=== PATIENT | male | born 1970 | race Caucasian/White ===

== ENCOUNTER 2017-05-03 20:18 | Inpatient (IN) | payer OTHER ==
[2017-05-03 20:51] VITALS: BMI 29.4
--- NOTE | 2017-05-03 21:57 | HP ---
COWS - Scale Resting Pulse: 0= ID 80 or Below Sweatin=Flushed/Facial Moisture Restless Observation: 1= Difficult to Sit Still Pupil Size: 0= Normal to Room Light Bone or Joint Aches: 1= Mild Discomfort Runny Nose/ Eye Tearin= Runny Nose/Eyes GI Upset > 30mins: 2= Nausea/Diarrhea Tremor Observation: 1= Tremor [place], Not Seen Yawning Observation: 1= 1-2x During Session Anxiety or Irritability: 2=Irritable/Anxious Goose Flesh Skin: 0=Smooth Skin COWS Score: 12 CIWA Score - CIWA Score Nausea/Vomitin-Mild Nausea/No Vomiting Muscle Tremors: 2 Anxiety: 3 Agitation: 0-Normal Activity Paroxysmal Sweats: 2 Orientation: 0-Oriented Tacttile Disturbances: 1-Very Mild Itch/Numbness Auditory Disturbances: 1-Very Mild Visual Disturbances: 1-Very Mild Sensitivity Headache: 1-Very Mild CIWA-Ar Total Score: 12 Admission ROS BHS - HPI Chief Complaint: alcohol and heroin withdrawal symptoms History of Present Illness: 46 yo male with heroin, alcohol dependence, and occasional cocaine use is here seeking detox. Reports feeling depress because his nephew two weeks ago from Fentanyl overdose. PMHX: depression, anxiety, insomnia, left hip replacement in December. Reports prior to the surgery he was clean and relapse after he was treated with oxy for pain. Reports overdose 3 years ago, denies seizures or blackouts. Longest period of sobriety 8 month. Denies suicidal / homicidal ideation or suicide attempts. Upon completion of detox, patient plans to attend and out patient rehab. Last detox [facility] in [place] Mar 2017. Exam Limitations: No Limitations - Ebola screening Have you traveled outside of the country in the last 21 days: No (N) Have you had contact with anyone from an Ebola affected area: No Have you been sick,other than usual withdrawal symptoms: No Do you have a fever: No - Review of Systems Constitutional: Chills, Changes in sleep EENT: reports: Nose Congestion Respiratory: reports: No Symptoms reported Cardiac: reports: No Symptoms Reported GI: reports: Constipated, Nausea, Poor Appetite, Poor Fluid Intake, Indigestion : reports: No Symptoms Reported Musculoskeletal: reports: No Symptoms Reported Integumentary: reports: No Symptoms Reported Neuro: reports: No Symptoms reported Endocrine: reports: Excessive Sweating Hematology: reports: No Symptoms Reported Psychiatric: reports: Orientated x3, Anxious Other Systems: Reviewed and Negative Patient History - Patient Medical History Hx Anemia: No Hx Asthma: No Hx Chronic Obstructive Pulmonary Disease (COPD): No Hx Cancer: No Hx Cardiac Disorders: No Hx Congestive Heart Failure: No Hx Hypertension: No Hx Hypercholesterolemia: No Hx Pacemaker: No HX Cerebrovascular Accident: No Hx Seizures: No Hx Dementia: No Hx Diabetes: No Hx Gastrointestinal Disorders: No Hx Liver Disease: No Hx Genitourinary Disorders: No Hx Sexually Transmitted Disorders: No Hx Renal Disease (ESRD): No Hx Thyroid Disease: No Hx Human Immunodeficiency Virus (HIV): No (negative, lasted December 2016) Hx Hepatitis C: No Hx Depression: Yes Hx Suicide Attempt: No Hx Bipolar Disorder: No Hx Schizophrenia: No - Patient Surgical History Past Surgical History: Yes Hx Neurologic Surgery: No Hx Cataract Extraction: No Hx Cardiac Surgery: No Hx Lung Surgery: No Hx Breast Surgery: No Hx Breast Biopsy: No Hx Abdominal Surgery: No Hx Appendectomy: No Hx Cholecystectomy: No Hx Genitourinary Surgery: No Hx Orthopedic Surgery: Yes (left hip replacement ) Anesthesia Reaction: No - PPD History Previous Implant?: Yes Documented Results: Negative w/o proof PPD to be Administered?: Yes - Reproductive History Patient is a Female of Child Bearing Age (11 -55 yrs old): No - Smoking Cessation Smoking history: Former smoker Have you smoked in the past 12 months: Yes Hx Chewing Tobacco Use: No Initiated information on smoking cessation: No - Substance & Tx. History Hx Alcohol Use: Yes Hx Substance Use: Yes Substance Use Type: Alcohol Hx Substance Use Treatment: Yes ([facility] in [place] Mar 2017) - Substances Abused Alcohol Route: Oral Frequency: Daily Amount used: 1 litter wisky Age of first use: 16 Date of Last Use: 05/03/17 Heroin Route: Inhalation Frequency: Daily Amount used: 8 bags Age of first use: 43 Date of Last Use: 05/03/17 Cocaine Route: Inhalation Frequency: 1-2 times per week Amount used: $20 Age of first use: 43 Date of Last Use: 05/01/17 Family Disease History - Family Disease History Family Disease History: Other: Father (alive and well ), Mother (alive and well) , Brother (alive, cocaine and alcohol dependence ) Admission Physical Exam BHS - Vital Signs Vital Signs: Vital Signs - 24 hr 05/03/17 20:49 Temperature 95.8 F L Pulse Rate 75 Respiratory 18 Rate Blood Pressure 127/98 - Physical General Appearance: Yes: No Apparent Distress, Appropriately Dressed, Sweating, Anxious Respiratory: Yes: Chest Non-Tender, Lungs Clear, Normal Breath Sounds, No Respiratory Distress, No Accessory Muscle Use Neck: Yes: No masses,lesions,Nodules, Trachea in good position Breast: Yes: Breast Exam Deferred Cardiology: Yes: Regular Rhythm, Regular Rate Abdominal: Yes: Normal Bowel Sounds, Non Tender, Flat, Soft Genitourinary: Yes: Within Normal Limits Back: Yes: Normal Inspection Musculoskeletal: Yes: full range of Motion, Gait Steady, Pelvis Stable Extremities: Yes: Normal Capillary Refill, Normal Inspection, Normal Range of Motion, Non-Tender Neurological: Yes: affirmative action officer II-XII NML intact, Fully Oriented, Alert, Motor Strength 5/5, Depressed Affect Integumentary: Yes: Normal Color, Warm, Diaphoresis Lymphatic: Yes: Within Normal Limits - Diagnostic (1) Cocaine dependence Current Visit: Yes Status: Acute Qualifiers: Substance use status: uncomplicated Qualified Code(s): F14.20 - Cocaine dependence, uncomplicated (2) Alcohol dependence with withdrawal Current Visit: Yes Status: Acute Qualifiers: Complication of substance-induced condition: uncomplicated Qualified Code(s ): F10.230 - Alcohol dependence with withdrawal, uncomplicated (3) History of hip replacement Current Visit: Yes Status: Acute Qualifiers: Laterality: left Qualified Code(s): Z96.642 - Presence of left artificial hip joint (4) Opioid dependence with withdrawal Current Visit: Yes Status: Acute (5) Anxious mood Current Visit: Yes Status: Acute (6) Bereavement Current Visit: Yes Status: Acute (7) Difficulty sleeping Current Visit: Yes Status: Acute Cleared for Admission [facility] - Detox or Rehab [facility] Level of Care: Medically Managed Detox Regimen/Protocol: Methadone/Librium [facility] Breath Alcohol Content Breath Alcohol Content: 0 Urine Drug Screen - Results Drug Screen Negative: No Urine Drug Screen Results: RICHA-Cocaine, OPI-Opiates
[2017-05-03] MEDS ORDERED: LOPERAMIDE HCL 2 MG CAPSULE PO PRN (22:31)
[2017-05-03] MEDS ORDERED: METHADONE HCL 10 MG TABLET (FOR DETOX USE ONLY) PO ONE ×2 (22:31→23:00)
[2017-05-03] MEDS ORDERED: MAGNESIUM CITRATE 300 ML BOTTLE PO PRN (22:31)
[2017-05-03] MEDS ORDERED: MAGNESIUM HYDROX 2400MG/30ML ORAL SUSPENSION 30 ML CUP PO PRN (22:31)
[2017-05-03] MEDS ORDERED: chlordiazePOXIDE HCL 25 MG CAPSULE PO PRN (22:31)
[2017-05-03] MEDS ORDERED: MENTHOL/PHENOL 1 EACH UD MM PRN (22:31)
[2017-05-03] MEDS ORDERED: chlordiazePOXIDE HCL 25 MG CAPSULE PO ONE (22:31)
[2017-05-03] MEDS ORDERED: P-EPHED 60MG/TRIPROLIDI 2.5MG TABLET PO PRN (22:31)
[2017-05-03] MEDS ORDERED: guaiFENesin/D-METHORPHAN HB 10 ML UNIT-DOSE CUPS PO PRN (22:31)
[2017-05-03] MEDS ORDERED: chlordiazePOXIDE HCL 25 MG CAPSULE PO SCH (23:00)
[2017-05-04] MEDS: MELATONIN 5 MG TABLETS PO PRN (00:57)
[2017-05-04] MEDS ORDERED: METHADONE HCL 10 MG TABLET (FOR DETOX USE ONLY) PO ONE ×3 (01:19→22:00)
[2017-05-04] MEDS ORDERED: chlordiazePOXIDE HCL 25 MG CAPSULE PO PRN (01:19)
[2017-05-04 02:05] LABS: URINE APPEARANCE CLEAR; URINE BILIRUBIN NEGATIVE (<2.0 mg/dL); URINE BLOOD NEGATIVE (NEGATIVE); URINE COLOR YELLOW; URINE GLUCOSE (UA) NEGATIVE (NEGATIVE); URINE KETONE NEGATIVE (NEGATIVE); URINE LEUK ESTERASE NEGATIVE (NEGATIVE); URINE NITRITE NEGATIVE (NEGATIVE); URINE PROTEIN NEGATIVE (NEGATIVE); URINE UROBILINOGEN NEGATIVE mg/dL (0.2-1.0)
[2017-05-04] MEDS: chlordiazePOXIDE HCL 25 MG CAPSULE PO SCH ×4 (05:10→22:23)
[2017-05-04] MEDS: IBUPROFEN 400 MG TABLET (FP) PO PRN (09:45)
[2017-05-04] MEDS ORDERED: METHADONE HCL 10 MG TABLET (FOR DETOX USE ONLY) PO SCH (10:00)
[2017-05-04] MEDS: PANTOPRAZOLE 20 MG TABLET (FP) PO SCH ×2 (10:11→22:23)
[2017-05-04] MEDS: PRENATAL VITAMINS W/ FOLIC ACID TABLET (FP) PO SCH (10:11)
[2017-05-04 10:19] LABS: HEMATOCRIT 37.3 % (35.4-49); HEMOGLOBIN 12.8 GM/dL (11.7-16.9); MCH 30.6 pg (25.7-33.7); MCHC 34.3 g/dl (32.0-35.9); MEAN CELL VOLUME 89.1 fl (80-96); MEAN PLT VOLUME 8.2 fl (7.5-11.1); PLATELET COUNT 267 K/MM3 (134-434); RBC 4.19 M/mm3 (4.00-5.60); RDW 13.5 % (11.9-15.9); WHITE BLOOD COUNT 3.1 K/mm3 (4.0-10.0)
[2017-05-04 10:53] LABS: ALBUMIN 3.4 g/dl (3.4-5.0); ANION GAP 6 (8-16); BLOOD UREA NITROGEN 10 mg/dL (7-18); CALCIUM 8.5 mg/dL (8.5-10.1); CHLORIDE 101 mmol/L (98-107); CO2 31 mmol/L (21-32); GLUCOSE,RANDOM 82 mg/dL (74-106); POTASSIUM 4.3 mmol/L (3.5-5.1); SODIUM 138 mmol/L (136-145)
--- NOTE | 2017-05-04 10:53 | EKG ---
Test Reason : Blood Pressure : / mmHG Vent. Rate : 059 BPM Atrial Rate : 059 BPM P-R Int : 158 ms QRS Dur : 092 ms QT Int : 404 ms P-R-T Axes : 020 051 037 degrees QTc Int : 399 ms SINUS BRADYCARDIA WITH SINUS ARRHYTHMIA OTHERWISE NORMAL ECG NO PREVIOUS ECGS AVAILABLE Confirmed by JAME CONTRERAS, SANJEEV ([id number]) on 05/04/2017 10:52:47 AM Referred By: Confirmed By:SANJEEV KILGORE MD
[2017-05-04 10:56] LABS: ALK PHOS 77 U/L (45-117); BILIRUBIN,TOTAL 0.3 mg/dL (0.2-1.0); CREATININE 0.8 mg/dL (0.7-1.3); SGOT/AST 22 U/L (15-37); SGPT/ALT 37 U/L (12-78); TOT PROT 6.5 g/dl (6.4-8.2)
--- NOTE | 2017-05-04 11:50 | PN ---
S CIWA - CIWA Score Nausea/Vomitin-No Nausea/No Vomiting Muscle Tremors: None Anxiety: 4-Mod. Anxious/Guarded Agitation: 2 Paroxysmal Sweats: No Perspiration Orientation: 0-Oriented Tacttile Disturbances: 2-Mild Itch/Numbness/Burn Auditory Disturbances: 3-Moderate Harsh/Frighten Visual Disturbances: 3-Moderate Sensitivity Headache: 0-None Present CIWA-Ar Total Score: 14 BHS COWS - Scale Resting Pulse: 0= [place] 80 or Below Sweatin= Chills/Flushing Restless Observation: 1= Difficult to Sit Still Pupil Size: 0= Normal to Room Light Bone or Joint Aches: 2= Severe Diffuse Aches Runny Nose/ Eye Tearin= Runny Nose/Eyes GI Upset > 30mins: 0= None Tremor Observation of Outstretched Hands: 0= None Yawning Observation: 2= >3x During Session Anxiety or Irritability: 2=Irritable/Anxious Goose Flesh Skin: 3=Piloerection COWS Score: 13 S Progress Note (SOAP) Subjective: Interrupted Sleep, H/A, Fatigue, Body Aches. Objective: PATIENT A & O X 3, OBSERVED AMBULATING ON UNIT. NO ACUTE DISTRESS. 05/04/17 11:48 Vital Signs Temperature 96.8 F L 05/04/17 09:19 Pulse Rate 65 05/04/17 09:19 Respiratory Rate 20 05/04/17 09:19 Blood Pressure 124/79 05/04/17 09:19 O2 Sat by Pulse Oximetry (%) Laboratory Tests 05/03/17 05/04/17 05/04/17 23:54 07:30 07:30 WBC 3.1 L RBC 4.19 Hgb 12.8 Hct 37.3 MCV 89.1 MCH 30.6 MCHC 34.3 RDW 13.5 Plt Count 267 MPV 8.2 Sodium 138 Potassium 4.3 Chloride 101 Carbon Dioxide 31 Anion Gap 6 L BUN 10 Creatinine 0.8 Creat Clearance w eGFR > 60 Random Glucose 82 Calcium 8.5 Total Bilirubin 0.3 AST 22 ALT 37 Alkaline Phosphatase 77 Total Protein 6.5 Albumin 3.4 Urine Color Yellow Urine Appearance Clear Urine pH 6.0 Ur Specific [place] 1.023 Urine Protein Negative Urine Glucose (UA) Negative Urine Ketones Negative Urine Blood Negative Urine Nitrite Negative Urine Bilirubin Negative Urine Urobilinogen Negative Ur Leukocyte Esterase Negative RPR Titer HIV 1&2 Antibody Screen HIV P24 Antigen 05/04/17 05/04/17 07:30 07:30 WBC RBC Hgb Hct MCV MCH MCHC RDW Plt Count MPV Sodium Potassium Chloride Carbon Dioxide Anion Gap BUN Creatinine Creat Clearance w eGFR Random Glucose Calcium Total Bilirubin AST ALT Alkaline Phosphatase Total Protein Albumin Urine Color Urine Appearance Urine pH Ur Specific [place] Urine Protein Urine Glucose (UA) Urine Ketones Urine Blood Urine Nitrite Urine Bilirubin Urine Urobilinogen Ur Leukocyte Esterase RPR Titer Nonreactive HIV 1&2 Antibody Screen Negative HIV P24 Antigen Negative LABS NOTED. Assessment: 05/04/17 11:48 WITHDRAWAL SYMPTOMS. Plan: CONTINUE DETOX.
--- NOTE | 2017-05-04 12:52 | CONSULT ---
[facility] Psychiatric Consult - Data Date of interview: 05/04/17 Admission source: [facility] Identifying data: First admission to [facility] for this 46 y/o male seeking detox treatment on for heroin,alcohol and cocaine dependence.Patient is ,a father of three,domiciled,unemployed and currently supported by spouse. Substance Abuse History: Discussed with the patient.Mr Rose confirms a 30+ year history of alcohol dependence and a more recent addiction to cocaine + heroin. More details in current [facility] report : and Smoking history: Former smoker. Have you smoked in the past 12 months: Yes. Hx Chewing Tobacco Use: No. Initiated information on smoking cessation: No. - Substance & Tx. History. Hx Alcohol Use: Yes. Hx Substance Use: Yes. Substance Use Type: Alcohol. Hx Substance Use Treatment: Yes ([facility] in [place] Mar 2017). - Substances Abused. Alcohol. Route: Oral. Frequency: Daily. Amount used: 1 litter wisky. Age of first use: 16. Date of Last Use: 05/03/17. Heroin. Route: Inhalation. Frequency: Daily. Amount used: 8 bags. Age of first use : 43. Date of Last Use: 05/03/17. Cocaine. Route: Inhalation. Frequency: 1-2 times per week. Amount used: $20. Age of first use: 43. Date of Last Use : 05/01/17 Medical History: History of left hip replacement. Psychiatric History: Patient denies history of psychiatric hospitalizatons or suicide attempts.Treated recently with seroquel (insomnia) at a rehabiltation facility.Mr Rose denies history of psychiatric OPD care. Physical/Sexual Abuse/Trauma History: Patient denies history of abuse.Saddened by the recent of his nephew (drug overdose as per self-report). Additional Comment: Urine Drug Screen Results: RICHA-Cocaine, OPI-Opiates.Noted. Mental Status Exam - Mental Status Exam Alert and Oriented to: Time, Place, Person Cognitive Function: Good Patient Appearance: Disheveled Mood: Sad, Nervous, Withdrawn Affect: Mood Congruent Patient Behavior: Fatigued, Appropriate, Cooperative Speech Pattern: Clear, Appropriate Voice Loudness: Normal Thought Process: Intact, Goal Oriented Thought Disorder: Not Present Hallucinations: Denies Suicidal Ideation: Denies Homicidal Ideation: Denies Insight/Judgement: Poor Sleep: Poorly, Difficulty falling asleep Appetite: Good Muscle strength/Tone: Normal Gait/Station: Normal Psychiatric Findings - Problem List ([place] 1, 2,3) (1) Alcohol dependence with withdrawal Current Visit: Yes Status: Acute Qualifiers: Complication of substance-induced condition: uncomplicated Qualified Code(s ): F10.230 - Alcohol dependence with withdrawal, uncomplicated (2) Opioid dependence with withdrawal Current Visit: Yes Status: Acute (3) Cocaine dependence Current Visit: Yes Status: Acute Qualifiers: Substance use status: uncomplicated Qualified Code(s): F14.20 - Cocaine dependence, uncomplicated (4) Bereavement Current Visit: Yes Status: Acute (5) Insomnia Current Visit: Yes Status: Acute - Initial Treatment Plan Initial Treatment Plan: Psychoeducation.Sleep hygiene.Psychoeducation and empathy.Detoxification in progress.Seroquel 100 mg po hs.Side effects/benefits discusssed with patient.Made aware of risk of oversedation,metabolic syndrome, abnormal involuntary movements and cardiovascular adverse events.Verbal consent : obtained from patient.Observation.
[2017-05-04] MEDS: THIAMINE HCL 100 MG TABLET (FP) PO SCH (22:23)
[2017-05-04] MEDS: QUEtiapine FUMARATE 100 MG TABLET (FP) PO SCH (22:24)
[2017-05-04] MEDS ORDERED: chlordiazePOXIDE HCL 25 MG CAPSULE PO SCH (23:00)
[2017-05-05] MEDS: chlordiazePOXIDE HCL 25 MG CAPSULE PO SCH ×4 (05:23→22:27)
[2017-05-05] MEDS ORDERED: METHADONE HCL 10 MG TABLET (FOR DETOX USE ONLY) PO SCH (10:00)
[2017-05-05] MEDS ORDERED: METHADONE HCL 5 MG TABLET (FOR DETOX USE ONLY) PO SCH (10:00)
[2017-05-05] MEDS: PRENATAL VITAMINS W/ FOLIC ACID TABLET (FP) PO SCH (10:07)
[2017-05-05] MEDS: PANTOPRAZOLE 20 MG TABLET (FP) PO SCH ×2 (10:07→22:27)
[2017-05-05] MEDS: IBUPROFEN 400 MG TABLET (FP) PO PRN (11:47)
--- NOTE | 2017-05-05 16:35 | PN ---
S CIWA - CIWA Score Nausea/Vomitin-No Nausea/No Vomiting Muscle Tremors: None Anxiety: 4-Mod. Anxious/Guarded Agitation: 2 Paroxysmal Sweats: 2 Orientation: 0-Oriented Tacttile Disturbances: 1-Very Mild Itch/Numbness Auditory Disturbances: 2-Mild Harshness/Frighten Visual Disturbances: 2-Mild Sensitivity Headache: 0-None Present CIWA-Ar Total Score: 13 BHS COWS - Scale Resting Pulse: 0= IN 80 or Below Sweatin= No chills or Flushing Restless Observation: 1= Difficult to Sit Still Pupil Size: 0= Normal to Room Light Bone or Joint Aches: 1= Mild Discomfort Runny Nose/ Eye Tearin= Runny Nose/Eyes GI Upset > 30mins: 1= Stomach Cramp Tremor Observation of Outstretched Hands: 0= None Yawning Observation: 2= >3x During Session Anxiety or Irritability: 2=Irritable/Anxious Goose Flesh Skin: 3=Piloerection COWS Score: 12 BHS Progress Note (SOAP) Subjective: Stomach Cramping, Fatigue, Interrupted sleep, Constipation. Objective: PATIENT A & O X 3. NO ACUTE DISTRESS. 05/05/17 16:34 Vital Signs Temperature 97.3 F L 05/05/17 13:22 Pulse Rate 63 05/05/17 13:22 Respiratory Rate 18 05/05/17 13:22 Blood Pressure 114/69 05/05/17 13:22 O2 Sat by Pulse Oximetry (%) Laboratory Tests 05/03/17 05/04/17 05/04/17 23:54 07:30 07:30 WBC 3.1 L RBC 4.19 Hgb 12.8 Hct 37.3 MCV 89.1 MCH 30.6 MCHC 34.3 RDW 13.5 Plt Count 267 MPV 8.2 Sodium 138 Potassium 4.3 Chloride 101 Carbon Dioxide 31 Anion Gap 6 L BUN 10 Creatinine 0.8 Creat Clearance w eGFR > 60 Random Glucose 82 Calcium 8.5 Total Bilirubin 0.3 AST 22 ALT 37 Alkaline Phosphatase 77 Total Protein 6.5 Albumin 3.4 Urine Color Yellow Urine Appearance Clear Urine pH 6.0 Ur Specific [place] 1.023 Urine Protein Negative Urine Glucose (UA) Negative Urine Ketones Negative Urine Blood Negative Urine Nitrite Negative Urine Bilirubin Negative Urine Urobilinogen Negative Ur Leukocyte Esterase Negative RPR Titer HIV 1&2 Antibody Screen HIV P24 Antigen 05/04/17 05/04/17 07:30 07:30 WBC RBC Hgb Hct MCV MCH MCHC RDW Plt Count MPV Sodium Potassium Chloride Carbon Dioxide Anion Gap BUN Creatinine Creat Clearance w eGFR Random Glucose Calcium Total Bilirubin AST ALT Alkaline Phosphatase Total Protein Albumin Urine Color Urine Appearance Urine pH Ur Specific [place] Urine Protein Urine Glucose (UA) Urine Ketones Urine Blood Urine Nitrite Urine Bilirubin Urine Urobilinogen Ur Leukocyte Esterase RPR Titer Nonreactive HIV 1&2 Antibody Screen Negative HIV P24 Antigen Negative LABS NOTED. Assessment: 05/05/17 16:34 WITHDRAWAL SYMPTOMS. Plan: CONTINUE DETOX.
[2017-05-05] MEDS: THIAMINE HCL 100 MG TABLET (FP) PO SCH (22:26)
[2017-05-05] MEDS: QUEtiapine FUMARATE 100 MG TABLET (FP) PO SCH (22:27)
[2017-05-05] MEDS ORDERED: chlordiazePOXIDE 5 MG CAPSULE PO SCH (23:00)
[2017-05-06] MEDS: chlordiazePOXIDE 5 MG CAPSULE PO SCH ×4 (05:20→22:24)
[2017-05-06] MEDS: PRENATAL VITAMINS W/ FOLIC ACID TABLET (FP) PO SCH (10:15)
[2017-05-06] MEDS: PANTOPRAZOLE 20 MG TABLET (FP) PO SCH ×2 (10:15→22:24)
[2017-05-06] MEDS: METHADONE HCL 5 MG TABLET (FOR DETOX USE ONLY) PO SCH (10:16)
--- NOTE | 2017-05-06 12:39 | PN ---
BHS Progress Note (SOAP) Subjective: Interrupted Sleep, Sweating, Fatigue, H/A, Body Aches. Objective: PATIENT A & O X 3, OBSERVED AMBULATING ON UNIT. NO ACUTE DISTRESS. 05/06/17 12:37 Vital Signs Temperature 95.9 F L 05/06/17 09:12 Pulse Rate 81 05/06/17 09:12 Respiratory Rate 18 05/06/17 09:12 Blood Pressure 111/74 05/06/17 09:12 O2 Sat by Pulse Oximetry (%) Laboratory Tests 05/03/17 05/04/17 05/04/17 23:54 07:30 07:30 WBC 3.1 L RBC 4.19 Hgb 12.8 Hct 37.3 MCV 89.1 MCH 30.6 MCHC 34.3 RDW 13.5 Plt Count 267 MPV 8.2 Sodium 138 Potassium 4.3 Chloride 101 Carbon Dioxide 31 Anion Gap 6 L BUN 10 Creatinine 0.8 Creat Clearance w eGFR > 60 Random Glucose 82 Calcium 8.5 Total Bilirubin 0.3 AST 22 ALT 37 Alkaline Phosphatase 77 Total Protein 6.5 Albumin 3.4 Urine Color Yellow Urine Appearance Clear Urine pH 6.0 Ur Specific [place] 1.023 Urine Protein Negative Urine Glucose (UA) Negative Urine Ketones Negative Urine Blood Negative Urine Nitrite Negative Urine Bilirubin Negative Urine Urobilinogen Negative Ur Leukocyte Esterase Negative RPR Titer HIV 1&2 Antibody Screen HIV P24 Antigen 05/04/17 05/04/17 07:30 07:30 WBC RBC Hgb Hct MCV MCH MCHC RDW Plt Count MPV Sodium Potassium Chloride Carbon Dioxide Anion Gap BUN Creatinine Creat Clearance w eGFR Random Glucose Calcium Total Bilirubin AST ALT Alkaline Phosphatase Total Protein Albumin Urine Color Urine Appearance Urine pH Ur Specific [place] Urine Protein Urine Glucose (UA) Urine Ketones Urine Blood Urine Nitrite Urine Bilirubin Urine Urobilinogen Ur Leukocyte Esterase RPR Titer Nonreactive HIV 1&2 Antibody Screen Negative HIV P24 Antigen Negative LABS NOTED. Assessment: 05/06/17 12:37 WITHDRAWAL SYMPTOMS. Plan: CONTINUE DETOX. INCREASE DAILY PO FLUID INTAKE.
[2017-05-06] MEDS: IBUPROFEN 400 MG TABLET (FP) PO PRN (20:53)
[2017-05-06] MEDS: THIAMINE HCL 100 MG TABLET (FP) PO SCH (22:23)
[2017-05-06] MEDS: QUEtiapine FUMARATE 100 MG TABLET (FP) PO SCH (22:24)
[2017-05-06] MEDS ORDERED: chlordiazePOXIDE HCL 10 MG CAPSULE PO SCH (23:00)
[2017-05-06] MEDS: ACETAMINOPHEN 325 MG TABLET (FP) PO PRN (23:37)
[2017-05-07] MEDS: chlordiazePOXIDE HCL 10 MG CAPSULE PO SCH ×4 (05:16→22:05)
[2017-05-07] MEDS ORDERED: METHADONE HCL 10 MG TABLET (FOR DETOX USE ONLY) PO SCH (10:00)
[2017-05-07] MEDS: METHADONE HCL 5 MG TABLET (FOR DETOX USE ONLY) PO SCH (10:04)
[2017-05-07] MEDS: PRENATAL VITAMINS W/ FOLIC ACID TABLET (FP) PO SCH (10:04)
[2017-05-07] MEDS: PANTOPRAZOLE 20 MG TABLET (FP) PO SCH ×2 (10:04→22:05)
[2017-05-07] MEDS: MAG HYDROX/AL HYDROX/SIMETH 30 ML UNIT-DOSE CUP PO PRN (15:13)
--- NOTE | 2017-05-07 16:30 | PN ---
BHS Progress Note (SOAP) Subjective: Stomach Cramping, Anxious. Objective: PATIENT A & O X 3, OBSERVED AMBULATING ON UNIT. NO ACUTE DISTRESS. 05/07/17 16:29 Vital Signs Temperature 96.5 F L 05/07/17 14:33 Pulse Rate 82 05/07/17 14:33 Respiratory Rate 20 05/07/17 14:33 Blood Pressure 132/84 05/07/17 14:33 O2 Sat by Pulse Oximetry (%) Laboratory Tests 05/03/17 05/04/17 05/04/17 23:54 07:30 07:30 WBC 3.1 L RBC 4.19 Hgb 12.8 Hct 37.3 MCV 89.1 MCH 30.6 MCHC 34.3 RDW 13.5 Plt Count 267 MPV 8.2 Sodium 138 Potassium 4.3 Chloride 101 Carbon Dioxide 31 Anion Gap 6 L BUN 10 Creatinine 0.8 Creat Clearance w eGFR > 60 Random Glucose 82 Calcium 8.5 Total Bilirubin 0.3 AST 22 ALT 37 Alkaline Phosphatase 77 Total Protein 6.5 Albumin 3.4 Urine Color Yellow Urine Appearance Clear Urine pH 6.0 Ur Specific [place] 1.023 Urine Protein Negative Urine Glucose (UA) Negative Urine Ketones Negative Urine Blood Negative Urine Nitrite Negative Urine Bilirubin Negative Urine Urobilinogen Negative Ur Leukocyte Esterase Negative RPR Titer HIV 1&2 Antibody Screen HIV P24 Antigen 05/04/17 05/04/17 07:30 07:30 WBC RBC Hgb Hct MCV MCH MCHC RDW Plt Count MPV Sodium Potassium Chloride Carbon Dioxide Anion Gap BUN Creatinine Creat Clearance w eGFR Random Glucose Calcium Total Bilirubin AST ALT Alkaline Phosphatase Total Protein Albumin Urine Color Urine Appearance Urine pH Ur Specific [place] Urine Protein Urine Glucose (UA) Urine Ketones Urine Blood Urine Nitrite Urine Bilirubin Urine Urobilinogen Ur Leukocyte Esterase RPR Titer Nonreactive HIV 1&2 Antibody Screen Negative HIV P24 Antigen Negative LABS NOTED. Assessment: 05/07/17 16:29 WITHDRAWAL SYMPTOMS. Plan: CONTINUE DETOX. PRN [place] FOR UPSET STOMACH.
[2017-05-07] MEDS: THIAMINE HCL 100 MG TABLET (FP) PO SCH (22:05)
[2017-05-07] MEDS: QUEtiapine FUMARATE 100 MG TABLET (FP) PO SCH (22:05)
[2017-05-08] MEDS: IBUPROFEN 400 MG TABLET (FP) PO PRN ×2 (00:18→23:41)
[2017-05-08] MEDS ORDERED: METHADONE HCL 5 MG TABLET (FOR DETOX USE ONLY) PO SCH (06:00)
[2017-05-08] MEDS ORDERED: METHADONE HCL 10 MG TABLET (FOR DETOX USE ONLY) PO SCH (10:00)
[2017-05-08] MEDS: PRENATAL VITAMINS W/ FOLIC ACID TABLET (FP) PO SCH (10:06)
[2017-05-08] MEDS: PANTOPRAZOLE 20 MG TABLET (FP) PO SCH ×2 (10:07→22:13)
--- NOTE | 2017-05-08 10:34 | PN ---
BHS Progress Note (SOAP) Subjective: sweats Objective: 05/08/17 10:33 Vital Signs Temperature 96.6 F L 05/08/17 06:00 Pulse Rate 69 05/08/17 06:00 Respiratory Rate 18 05/08/17 06:00 Blood Pressure 100/60 05/08/17 06:00 O2 Sat by Pulse Oximetry (%) aaox3 ambulating no acute distress Assessment: 05/08/17 10:34 withdrawal sx Plan: continue detox d/c in am
[2017-05-08] MEDS: hydrOXYzine PAMOATE 50 MG CAPSULE (FP) PO PRN (16:36)
[2017-05-08] MEDS: MAG HYDROX/AL HYDROX/SIMETH 30 ML UNIT-DOSE CUP PO PRN (17:36)
[2017-05-08] MEDS: THIAMINE HCL 100 MG TABLET (FP) PO SCH (22:13)
[2017-05-08] MEDS: QUEtiapine FUMARATE 100 MG TABLET (FP) PO SCH (22:13)
[2017-05-08] MEDS: MELATONIN 5 MG TABLETS PO PRN (23:40)
[2017-05-09] MEDS ORDERED: METHADONE HCL 5 MG TABLET (FOR DETOX USE ONLY) PO SCH (06:00)
[2017-05-09] MEDS: PRENATAL VITAMINS W/ FOLIC ACID TABLET (FP) PO SCH (10:19)
[2017-05-09] MEDS: hydrOXYzine PAMOATE 50 MG CAPSULE (FP) PO PRN ×2 (10:20→19:17)
[2017-05-09] MEDS: PANTOPRAZOLE 20 MG TABLET (FP) PO SCH ×2 (10:41→22:17)
--- NOTE | 2017-05-09 14:35 | PN ---
BHS Progress Note (SOAP) Subjective: Sweating, Anxious, Interrupted Sleep. Objective: PATIENT A & O X 3, OBSERVED AMBULATING ON UNIT. NO ACUTE DISTRESS. 05/09/17 14:32 Vital Signs Temperature 96.7 F L 05/09/17 13:17 Pulse Rate 99 H 05/09/17 13:17 Respiratory Rate 18 05/09/17 13:17 Blood Pressure 125/79 05/09/17 13:17 O2 Sat by Pulse Oximetry (%) Laboratory Tests 05/03/17 05/04/17 05/04/17 23:54 07:30 07:30 WBC 3.1 L RBC 4.19 Hgb 12.8 Hct 37.3 MCV 89.1 MCH 30.6 MCHC 34.3 RDW 13.5 Plt Count 267 MPV 8.2 Sodium 138 Potassium 4.3 Chloride 101 Carbon Dioxide 31 Anion Gap 6 L BUN 10 Creatinine 0.8 Creat Clearance w eGFR > 60 Random Glucose 82 Calcium 8.5 Total Bilirubin 0.3 AST 22 ALT 37 Alkaline Phosphatase 77 Total Protein 6.5 Albumin 3.4 Urine Color Yellow Urine Appearance Clear Urine pH 6.0 Ur Specific [place] 1.023 Urine Protein Negative Urine Glucose (UA) Negative Urine Ketones Negative Urine Blood Negative Urine Nitrite Negative Urine Bilirubin Negative Urine Urobilinogen Negative Ur Leukocyte Esterase Negative RPR Titer HIV 1&2 Antibody Screen HIV P24 Antigen 05/04/17 05/04/17 07:30 07:30 WBC RBC Hgb Hct MCV MCH MCHC RDW Plt Count MPV Sodium Potassium Chloride Carbon Dioxide Anion Gap BUN Creatinine Creat Clearance w eGFR Random Glucose Calcium Total Bilirubin AST ALT Alkaline Phosphatase Total Protein Albumin Urine Color Urine Appearance Urine pH Ur Specific [place] Urine Protein Urine Glucose (UA) Urine Ketones Urine Blood Urine Nitrite Urine Bilirubin Urine Urobilinogen Ur Leukocyte Esterase RPR Titer Nonreactive HIV 1&2 Antibody Screen Negative HIV P24 Antigen Negative LABS NOTED. Assessment: 05/09/17 14:33 WITHDRAWAL SYMPTOMS. Plan: CONTINUE DETOX. DUE TO PRESENCE OF LINGERING DETOX SYMPTOMS AND TO INCLEMENT WEATHER OUTSIDE MAKING TRANSPORTATION DIFFICULT TODAY, PATIENT PERMITTED TO REMAIN ON DETOX UNIT UNTIL TOMORROW AM FOR DISCHARGE.
[2017-05-09] MEDS: ACETAMINOPHEN 325 MG TABLET (FP) PO PRN (15:44)
[2017-05-09] MEDS: QUEtiapine FUMARATE 100 MG TABLET (FP) PO SCH (22:17)
[2017-05-09] MEDS: THIAMINE HCL 100 MG TABLET (FP) PO SCH (22:17)
[2017-05-10] MEDS: ACETAMINOPHEN 325 MG TABLET (FP) PO PRN (00:29)
[2017-05-10] MEDS: hydrOXYzine PAMOATE 50 MG CAPSULE (FP) PO PRN (00:30)
[2017-05-10 09:11] VITALS: BP 107/62; PULSE 70; TEMP 96.3
[2017-05-10] MEDS: PANTOPRAZOLE 20 MG TABLET (FP) PO SCH (10:20)
[2017-05-10] MEDS: PRENATAL VITAMINS W/ FOLIC ACID TABLET (FP) PO SCH (10:20)
--- NOTE | 2017-05-10 10:45 | DS ---
[facility] Detox Discharge Summary Admission Date: 05/03/17 Discharge Date: 05/10/17 - History Present History: Alcohol Dependence, Cocaine Dependence Additional Comments: DETOX COMPLETED. ALERT O X3. NAD. Pertinent Past History: PLEASE SEE DX BELOW - Physical Exam Results Vital Signs: Vital Signs Temperature 96.3 F L 05/10/17 09:10 Pulse Rate 70 05/10/17 09:10 Respiratory Rate 18 05/10/17 09:10 Blood Pressure 107/62 05/10/17 09:10 O2 Sat by Pulse Oximetry (%) Pertinent Admission Physical Exam Findings: WITHDRAWAL SX Laboratory Last Values WBC 3.1 K/mm3 (4.0-10.0) L 05/04/17 07:30 RBC 4.19 M/mm3 (4.00-5.60) 05/04/17 07:30 Hgb 12.8 GM/dL (11.7-16.9) 05/04/17 07:30 Hct 37.3 % (35.4-49) 05/04/17 07:30 MCV 89.1 fl (80-96) 05/04/17 07:30 MCH 30.6 pg (25.7-33.7) 05/04/17 07:30 MCHC 34.3 g/dl (32.0-35.9) 05/04/17 07:30 RDW 13.5 % (11.9-15.9) 05/04/17 07:30 Plt Count 267 K/MM3 (134-434) 05/04/17 07:30 MPV 8.2 fl (7.5-11.1) 05/04/17 07:30 Sodium 138 mmol/L (136-145) 05/04/17 07:30 Potassium 4.3 mmol/L (3.5-5.1) 05/04/17 07:30 Chloride 101 mmol/L (98-107) 05/04/17 07:30 Carbon Dioxide 31 mmol/L (21-32) 05/04/17 07:30 Anion Gap 6 (8-16) L 05/04/17 07:30 BUN 10 mg/dL (7-18) 05/04/17 07:30 Creatinine 0.8 mg/dL (0.7-1.3) 05/04/17 07:30 Creat Clearance w eGFR > 60 (>60) 05/04/17 07:30 Random Glucose 82 mg/dL (74-106) 05/04/17 07:30 Calcium 8.5 mg/dL (8.5-10.1) 05/04/17 07:30 Total Bilirubin 0.3 mg/dL (0.2-1.0) 05/04/17 07:30 AST 22 U/L (15-37) 05/04/17 07:30 ALT 37 U/L (12-78) 05/04/17 07:30 Alkaline Phosphatase 77 U/L (45-117) 05/04/17 07:30 Total Protein 6.5 g/dl (6.4-8.2) 05/04/17 07:30 Albumin 3.4 g/dl (3.4-5.0) 05/04/17 07:30 Urine Color Yellow 05/03/17 23:54 Urine Appearance Clear 05/03/17 23:54 Urine pH 6.0 (5.0-8.0) 05/03/17 23:54 Ur Specific [place] 1.023 (1.001-1.035) 05/03/17 23:54 Urine Protein Negative (NEGATIVE) 05/03/17 23:54 Urine Glucose (UA) Negative (NEGATIVE) 05/03/17 23:54 Urine Ketones Negative (NEGATIVE) 05/03/17 23:54 Urine Blood Negative (NEGATIVE) 05/03/17 23:54 Urine Nitrite Negative (NEGATIVE) 05/03/17 23:54 Urine Bilirubin Negative (<2.0 mg/dL) 05/03/17 23:54 Urine Urobilinogen Negative mg/dL (0.2-1.0) 05/03/17 23:54 Ur Leukocyte Esterase Negative (NEGATIVE) 05/03/17 23:54 RPR Titer Nonreactive (NONREACTIVE) 05/04/17 07:30 HIV 1&2 Antibody Screen Negative 05/04/17 07:30 HIV P24 Antigen Negative 05/04/17 07:30 - Treatment Hospital Course: Detox Protocol Followed, Detoxed Safely, Responded well, Discharged Condition Good - Medication Discharge Medications: Ambulatory Orders NK [No Known Home Medication] 05/03/17 - Diagnosis (1) Alcohol dependence with withdrawal Current Visit: Yes Status: Acute Qualifiers: Complication of substance-induced condition: uncomplicated Qualified Code(s ): F10.230 - Alcohol dependence with withdrawal, uncomplicated (2) Cocaine dependence Current Visit: Yes Status: Acute Qualifiers: Substance use status: uncomplicated Qualified Code(s): F14.20 - Cocaine dependence, uncomplicated (3) Insomnia Current Visit: Yes Status: Acute Qualifiers: Insomnia type: unspecified Qualified Code(s): G47.00 - Insomnia, unspecified (4) Opioid dependence with withdrawal Current Visit: Yes Status: Acute (5) History of hip replacement Current Visit: Yes Status: Chronic Qualifiers: Laterality: left Qualified Code(s): Z96.642 - Presence of left artificial hip joint - AMA Did Patient Leave Against Medical Advice: No
== END 2017-05-10 13:14 | disposition home or self-care (01) | DRG 773 ==
LOC: YASAS 20:18 → Y3N 23:08
PROVIDERS: ADMIT Internal Medicine; ATTEND Internal Medicine
PROC: HZ2ZZZZ Detoxification Services for Substance Abuse Treatment (ICD-10-PCS; principal; 2017-05-03)
DX: F11.23 Opioid dependence with withdrawal (principal); F10.230 Alcohol dependence with withdrawal, uncomplicated; F14.20 Cocaine dependence, uncomplicated; F41.9 Anxiety disorder, unspecified; G47.00 Insomnia, unspecified; Z96.642 Presence of left artificial hip joint; Z63.4 Disappearance and death of family member
CPT/HCPCS: 36415; 80053; 81003; 85027; 86593; 87389; 93005; 93010

== ENCOUNTER 2017-09-10 19:07 | Inpatient (IN) | payer OTHER ==
[2017-09-10 20:21] VITALS: BMI 28.5
--- NOTE | 2017-09-10 22:17 | HP ---
COWS - Scale Resting Pulse: 0= [place] 80 or Below Sweatin=Flushed/Facial Moisture Restless Observation: 0= Sits Still Pupil Size: 0= Normal to Room Light Bone or Joint Aches: 4=Acute Joint/Muscle Pain Runny Nose/ Eye Tearin= Runny Nose/Eyes GI Upset > 30mins: 1= Stomach Cramp Tremor Observation: 2= Slight Tremor Visible Yawning Observation: 0= None Anxiety or Irritability: 4=Extreme Anxiety Goose Flesh Skin: 0=Smooth Skin COWS Score: 15 CIWA Score - CIWA Score Nausea/Vomitin Muscle Tremors: 3 Anxiety: 3 Agitation: 4-Moderately Restless Paroxysmal Sweats: 2 Orientation: 1-Uncertain about Date Tacttile Disturbances: 0-None Auditory Disturbances: 0-None Visual Disturbances: 0-None Headache: 2-Mild CIWA-Ar Total Score: 18 Admission ROS S - HPI Chief Complaint: Heroin and alcohol withdrawal symptoms Allergies/Adverse Reactions: Allergies Allergy/AdvReac Type Severity Reaction Status Date / Time No Known Allergies Allergy Verified 09/10/17 21:37 History of Present Illness: 46 years old male with a 4 years history of alcohol and heroin dependence is seeking admission to detox. Patient has been in previous detox at [facility] and report insignificant period of sobriety. He has medical history of depression and anxiety. He denies suicide attempt and suicidal ideation at this time. Exam Limitations: No Limitations - Ebola screening Have you traveled outside of the country in the last 21 days: No Have you had contact with anyone from an Ebola affected area: No Have you been sick,other than usual withdrawal symptoms: No Do you have a fever: No - Review of Systems Constitutional: Chills, Loss of Appetite, Malaise, Night Sweats, Changes in sleep EENT: reports: Nose Congestion Respiratory: reports: No Symptoms reported Cardiac: reports: No Symptoms Reported GI: reports: Poor Appetite, Poor Fluid Intake, Abdominal cramping : reports: No Symptoms Reported Musculoskeletal: reports: Back Pain, Muscle Pain Integumentary: reports: Dryness Neuro: reports: Headache, Tingling, Tremors Endocrine: reports: No Symptoms Reported Hematology: reports: No Symptoms Reported Psychiatric: reports: Mood/Affect Appropiate, Anxious Other Systems: Reviewed and Negative Patient History - Patient Medical History Hx Anemia: No Hx Asthma: No Hx Chronic Obstructive Pulmonary Disease (COPD): No Hx Cancer: No Hx Cardiac Disorders: No Hx Congestive Heart Failure: No Hx Hypertension: No Hx Hypercholesterolemia: No Hx Pacemaker: No HX Cerebrovascular Accident: No Hx Seizures: No Hx Dementia: No Hx Diabetes: No Hx Gastrointestinal Disorders: No Hx Liver Disease: No Hx Genitourinary Disorders: No Hx Sexually Transmitted Disorders: No Hx Renal Disease (ESRD): No Hx Thyroid Disease: No Hx Human Immunodeficiency Virus (HIV): No (Negative, lasted December 2016) Hx Hepatitis C: No Hx Depression: Yes (Not on medication) Hx Suicide Attempt: Yes (Denies suicide attempt and suicidal ideation at this time) Hx Bipolar Disorder: No Hx Schizophrenia: No - Patient Surgical History Past Surgical History: Yes Hx Neurologic Surgery: No Hx Cataract Extraction: No Hx Cardiac Surgery: No Hx Lung Surgery: No Hx Breast Surgery: No Hx Breast Biopsy: No Hx Abdominal Surgery: No Hx Appendectomy: No Hx Cholecystectomy: No Hx Genitourinary Surgery: No Hx Orthopedic Surgery: Yes (left hip replacement in 12/2016) Anesthesia Reaction: No - PPD History Date: 05/07/17 Results: 0 mm - Smoking Cessation Smoking history: Never smoked Have you smoked in the past 12 months: No Hx Chewing Tobacco Use: No - Substances Abused Alcohol Route: Oral Frequency: Daily Amount used: 1 BOTTLE OF WISKIE Age of first use: 14 Date of Last Use: 09/10/17 Heroin Route: SNIFF Frequency: Daily Amount used: 10 BAGS Age of first use: 44 Date of Last Use: 09/10/17 Family Disease History - Family Disease History Family Disease History: Other: Father (alive and well ), Mother (alive and well) , Brother (alive, cocaine and alcohol dependence ) Admission Physical Exam S - Vital Signs Vital Signs: Vital Signs - 24 hr 09/10/17 20:19 Temperature 97.1 F L Pulse Rate 79 Respiratory 18 Rate Blood Pressure 122/81 - Physical General Appearance: Yes: Moderate Distress HEENTM: Yes: Normal ENT Inspection, Normocephalic, Normal Voice, MICHAEL Respiratory: Yes: Lungs Clear, Normal Breath Sounds, No Respiratory Distress Neck: Yes: Supple Breast: Yes: Breast Exam Deferred Cardiology: Yes: Regular Rhythm, Regular Rate Abdominal: Yes: Normal Bowel Sounds, Soft Genitourinary: Yes: Within Normal Limits Back: Yes: Normal Inspection Musculoskeletal: Yes: Back pain, Muscle Pain Extremities: Yes: Tremors Neurological: Yes: Fully Oriented, Normal Mood/Affect Integumentary: Yes: Warm Lymphatic: Yes: Within Normal Limits - Diagnostic (1) Anxious mood Current Visit: Yes Status: Chronic (2) Alcohol dependence with uncomplicated withdrawal Current Visit: Yes Status: Chronic Comment: . (3) Cocaine dependence Current Visit: Yes Status: Chronic Qualifiers: Substance use status: uncomplicated Qualified Code(s): F14.20 - Cocaine dependence, uncomplicated Comment: . (4) Opioid dependence with withdrawal Current Visit: No Status: Acute Comment: . (5) Depression Current Visit: Yes Status: Chronic Qualifiers: Depression Type: unspecified Qualified Code(s): F32.9 - Major depressive disorder, single episode, unspecified Cleared for Admission [facility] - Detox or Rehab [facility] Level of Care: Medically Managed Detox Regimen/Protocol: Methadone/Librium [facility] Breath Alcohol Content Breath Alcohol Content: 0 Urine Drug Screen - Results Drug Screen Negative: No Urine Drug Screen Results: RICHA-Cocaine, OPI-Opiates, BZO-Benzodiazepines, OXY- Oxycodone
[2017-09-10] MEDS ORDERED: LOPERAMIDE HCL 2 MG CAPSULE PO PRN (22:23)
[2017-09-10] MEDS ORDERED: MAG HYDROX/AL HYDROX/SIMETH 30 ML UNIT-DOSE CUP PO PRN (22:23)
[2017-09-10] MEDS ORDERED: MENTHOL/PHENOL 1 EACH UD MM PRN (22:23)
[2017-09-10] MEDS ORDERED: P-EPHED 60MG/TRIPROLIDI 2.5MG TABLET PO PRN (22:23)
[2017-09-10] MEDS ORDERED: MAGNESIUM CITRATE 300 ML BOTTLE PO PRN (22:23)
[2017-09-10] MEDS ORDERED: MAGNESIUM HYDROX 2400MG/30ML ORAL SUSPENSION 30 ML CUP PO PRN (22:23)
[2017-09-10] MEDS ORDERED: guaiFENesin/D-METHORPHAN HB 10 ML UNIT-DOSE CUPS PO PRN (22:23)
[2017-09-10] MEDS ORDERED: METHADONE HCL 10 MG TABLET (FOR DETOX USE ONLY) PO ONE ×2 (23:00)
[2017-09-10] MEDS: chlordiazePOXIDE HCL 25 MG CAPSULE PO SCH (23:50)
[2017-09-11] MEDS: chlordiazePOXIDE HCL 25 MG CAPSULE PO SCH ×4 (05:45→22:29)
--- NOTE | 2017-09-11 08:56 | EKG ---
Test Reason : Blood Pressure : / mmHG Vent. Rate : 056 BPM Atrial Rate : 056 BPM P-R Int : 156 ms QRS Dur : 082 ms QT Int : 404 ms P-R-T Axes : 042 046 033 degrees QTc Int : 389 ms SINUS BRADYCARDIA OTHERWISE NORMAL ECG WHEN COMPARED WITH ECG OF 18-AUG-2017 22:06, NO SIGNIFICANT CHANGE WAS FOUND Confirmed by SAJNEEV KILGORE MD ([id number]) on 09/11/2017 8:56:24 AM Referred By: Confirmed By:SANJEEV KILGORE MD
[2017-09-11] MEDS ORDERED: METHADONE HCL 10 MG TABLET (FOR DETOX USE ONLY) PO SCH (10:00)
[2017-09-11] MEDS: PRENATAL VITAMINS W/ FOLIC ACID TABLET (FP) PO SCH (10:15)
[2017-09-11 10:23] LABS: HEMATOCRIT 34.4 % (35.4-49); MCH 31.4 pg (25.7-33.7); MEAN CELL VOLUME 89.7 fl (80-96); PLATELET COUNT 240 K/MM3 (134-434); RBC 3.83 M/mm3 (4.00-5.60); RDW 12.7 % (11.9-15.9)
[2017-09-11 10:29] LABS: ALBUMIN 3.1 g/dl (3.4-5.0); ANION GAP 5 (8-16); BILIRUBIN,TOTAL 0.2 mg/dL (0.2-1.0); BLOOD UREA NITROGEN 13 mg/dL (7-18); CALCIUM 8.2 mg/dL (8.5-10.1); CHLORIDE 106 mmol/L (98-107); CO2 30 mmol/L (21-32); GLUCOSE,RANDOM 96 mg/dL (74-106); POTASSIUM 4.1 mmol/L (3.5-5.1); SGOT/AST 15 U/L (15-37); SGPT/ALT 22 U/L (12-78); SODIUM 141 mmol/L (136-145); TOT PROT 5.8 g/dl (6.4-8.2)
[2017-09-11 10:30] LABS: ALK PHOS 77 U/L (45-117); CREATININE 0.9 mg/dL (0.7-1.3)
--- NOTE | 2017-09-11 16:19 | PN ---
[facility] CIWA - CIWA Score Nausea/Vomitin Muscle Tremors: 4-Moderate,w/Arms Extend Anxiety: 4-Mod. Anxious/Guarded Agitation: 4-Moderately Restless Paroxysmal Sweats: 3 Orientation: 0-Oriented Tacttile Disturbances: 0-None Auditory Disturbances: 0-None Visual Disturbances: 0-None Headache: 1-Very Mild CIWA-Ar Total Score: 19 [facility] COWS - Scale Resting Pulse: 0= [place] 80 or Below Sweatin= Chills/Flushing Restless Observation: 3= Extraneous Movement Pupil Size: 1= Pupils >than Normal Bone or Joint Aches: 2= Severe Diffuse Aches Runny Nose/ Eye Tearin= Runny Nose/Eyes GI Upset > 30mins: 2= Nausea/Diarrhea Tremor Observation of Outstretched Hands: 2= Slight Tremor Visible Yawning Observation: 1= 1-2x During Session Anxiety or Irritability: 2=Irritable/Anxious Goose Flesh Skin: 0=Smooth Skin COWS Score: 16 [facility] Progress Note (SOAP) Subjective: Sweating, tremor, nausea Objective: 09/11/17 16:17 Last Vital Signs Temp Pulse Resp BP Pulse Ox 97.1 F L 60 16 101/61 09/11/17 14:58 09/11/17 14:58 09/11/17 14:58 09/11/17 14:58 Laboratory Tests 09/11/17 09/11/17 09/11/17 07:40 07:40 07:40 WBC 3.0 L RBC 3.83 L Hgb 12.0 Hct 34.4 L MCV 89.7 MCH 31.4 MCHC 35.0 RDW 12.7 Plt Count 240 MPV 8.0 Sodium 141 Potassium 4.1 Chloride 106 Carbon Dioxide 30 Anion Gap 5 L BUN 13 Creatinine 0.9 Creat Clearance w eGFR > 60 Random Glucose 96 Calcium 8.2 L Total Bilirubin 0.2 AST 15 D ALT 22 D Alkaline Phosphatase 77 Total Protein 5.8 L Albumin 3.1 L RPR Titer Nonreactive Labs reviewed Assessment: 09/11/17 16:18 Withdrawal symptoms Plan: Continue detox Encouraged PO water hydration
[2017-09-11] MEDS: THIAMINE HCL 100 MG TABLET (FP) PO SCH (22:29)
[2017-09-11] MEDS: IBUPROFEN 400 MG TABLET (FP) PO PRN (23:41)
[2017-09-11] MEDS: MELATONIN 5 MG TABLETS PO PRN (23:44)
[2017-09-12] MEDS: chlordiazePOXIDE HCL 25 MG CAPSULE PO SCH ×3 (06:00→16:21)
[2017-09-12] MEDS: METHADONE HCL 5 MG TABLET (FOR DETOX USE ONLY) PO SCH (10:16)
[2017-09-12] MEDS: PRENATAL VITAMINS W/ FOLIC ACID TABLET (FP) PO SCH (10:17)
--- NOTE | 2017-09-12 13:51 | PN ---
[facility] CIWA - CIWA Score Nausea/Vomitin-No Nausea/No Vomiting Muscle Tremors: 3 Anxiety: 4-Mod. Anxious/Guarded Agitation: 2 Paroxysmal Sweats: 3 Orientation: 0-Oriented Tacttile Disturbances: 2-Mild Itch/Numbness/Burn Auditory Disturbances: 0-None Visual Disturbances: 2-Mild Sensitivity Headache: 0-None Present CIWA-Ar Total Score: 16 [facility] COWS - Scale Resting Pulse: 1= [place] 81-100 Sweatin=Flushed/Facial Moisture Restless Observation: 1= Difficult to Sit Still Pupil Size: 0= Normal to Room Light Bone or Joint Aches: 2= Severe Diffuse Aches Runny Nose/ Eye Tearin= Nasal Congestion GI Upset > 30mins: 1= Stomach Cramp Tremor Observation of Outstretched Hands: 2= Slight Tremor Visible Yawning Observation: 1= 1-2x During Session Anxiety or Irritability: 2=Irritable/Anxious Goose Flesh Skin: 0=Smooth Skin COWS Score: 13 [facility] Progress Note (SOAP) Subjective: Tremors, Body Aches, Sweating, Constipation, Interrupted Sleep, Fatigue, Stomach Cramping. Objective: PATIENT A & O X 3, OBSERVED AMBULATING ON UNIT. NO ACUTE DISTRESS. 09/12/17 13:49 Vital Signs Temperature 96.9 F L 09/12/17 13:41 Pulse Rate 81 09/12/17 13:41 Respiratory Rate 16 09/12/17 13:41 Blood Pressure 136/87 09/12/17 13:41 O2 Sat by Pulse Oximetry (%) Laboratory Tests 09/11/17 09/11/17 09/11/17 07:40 07:40 07:40 WBC 3.0 L RBC 3.83 L Hgb 12.0 Hct 34.4 L MCV 89.7 MCH 31.4 MCHC 35.0 RDW 12.7 Plt Count 240 MPV 8.0 Sodium 141 Potassium 4.1 Chloride 106 Carbon Dioxide 30 Anion Gap 5 L BUN 13 Creatinine 0.9 Creat Clearance w eGFR > 60 Random Glucose 96 Calcium 8.2 L Total Bilirubin 0.2 AST 15 D ALT 22 D Alkaline Phosphatase 77 Total Protein 5.8 L Albumin 3.1 L RPR Titer Nonreactive LABS NOTED. UA RESULTS PENDING. Assessment: 09/12/17 13:49 WITHDRAWAL SYMPTOMS. Plan: CONTINUE DETOX. INCREASE DAILY PO FLUID INTAKE. PRN FLEXERIL FOR BODY ACHES.
[2017-09-12 15:54] LABS: URINE APPEARANCE CLEAR; URINE BILIRUBIN NEGATIVE (<2.0 mg/dL); URINE COLOR LTYELLOW; URINE GLUCOSE (UA) NEGATIVE (NEGATIVE); URINE KETONE NEGATIVE (NEGATIVE); URINE LEUK ESTERASE NEGATIVE (NEGATIVE); URINE NITRITE NEGATIVE (NEGATIVE); URINE PROTEIN NEGATIVE (NEGATIVE); URINE UROBILINOGEN NEGATIVE mg/dL (0.2-1.0)
[2017-09-12] MEDS: CYCLOBENZAPRINE HCL 10 MG TABLET (FP) PO PRN (15:58)
[2017-09-12] MEDS: chlordiazePOXIDE HCL 25 MG CAPSULE PO PRN (16:21)
[2017-09-12] MEDS: THIAMINE HCL 100 MG TABLET (FP) PO SCH (22:21)
[2017-09-12] MEDS: chlordiazePOXIDE 5 MG CAPSULE PO SCH (22:21)
[2017-09-13] MEDS: chlordiazePOXIDE 5 MG CAPSULE PO SCH ×3 (05:12→17:28)
[2017-09-13] MEDS: CYCLOBENZAPRINE HCL 10 MG TABLET (FP) PO PRN (05:12)
[2017-09-13] MEDS: IBUPROFEN 400 MG TABLET (FP) PO PRN ×3 (05:14→22:24)
[2017-09-13] MEDS: PRENATAL VITAMINS W/ FOLIC ACID TABLET (FP) PO SCH (10:21)
[2017-09-13] MEDS: METHADONE HCL 5 MG TABLET (FOR DETOX USE ONLY) PO SCH (10:22)
--- NOTE | 2017-09-13 14:06 | PN ---
[facility] Progress Note (SOAP) Subjective: Body Aches, Sweating, Tremors, Fatigue. Objective: PATIENT A & O X 3, OBSERVED AMBULATING ON UNIT. NO ACUTE DISTRESS. 09/13/17 14:03 Vital Signs Temperature 97.9 F 09/13/17 14:02 Pulse Rate 70 09/13/17 14:02 Respiratory Rate 18 09/13/17 14:02 Blood Pressure 99/58 09/13/17 14:02 O2 Sat by Pulse Oximetry (%) Laboratory Tests 09/11/17 09/11/17 09/11/17 07:40 07:40 07:40 WBC 3.0 L RBC 3.83 L Hgb 12.0 Hct 34.4 L MCV 89.7 MCH 31.4 MCHC 35.0 RDW 12.7 Plt Count 240 MPV 8.0 Sodium 141 Potassium 4.1 Chloride 106 Carbon Dioxide 30 Anion Gap 5 L BUN 13 Creatinine 0.9 Creat Clearance w eGFR > 60 Random Glucose 96 Calcium 8.2 L Total Bilirubin 0.2 AST 15 D ALT 22 D Alkaline Phosphatase 77 Total Protein 5.8 L Albumin 3.1 L Urine Color Urine Appearance Urine pH Ur Specific [place] Urine Protein Urine Glucose (UA) Urine Ketones Urine Blood Urine Nitrite Urine Bilirubin Urine Urobilinogen Ur Leukocyte Esterase RPR Titer Nonreactive 09/12/17 13:20 WBC RBC Hgb Hct MCV MCH MCHC RDW Plt Count MPV Sodium Potassium Chloride Carbon Dioxide Anion Gap BUN Creatinine Creat Clearance w eGFR Random Glucose Calcium Total Bilirubin AST ALT Alkaline Phosphatase Total Protein Albumin Urine Color Ltyellow Urine Appearance Clear Urine pH 8.0 D Ur Specific [place] 1.010 Urine Protein Negative Urine Glucose (UA) Negative Urine Ketones Negative Urine Blood Negative Urine Nitrite Negative Urine Bilirubin Negative Urine Urobilinogen Negative Ur Leukocyte Esterase Negative RPR Titer LABS NOTED. Assessment: 09/13/17 14:04 WITHDRAWAL SYMPTOMS. LEUKOPENIA. ANEMIA. 09/13/17 14:04 Plan: CONTINUE DETOX. INCREASE DAILY PO FLUID INTAKE. ENCOURAGE AMBULATION.
[2017-09-13] MEDS: chlordiazePOXIDE HCL 25 MG CAPSULE PO PRN (19:17)
[2017-09-13] MEDS: chlordiazePOXIDE HCL 10 MG CAPSULE PO SCH (22:23)
[2017-09-13] MEDS: MELATONIN 5 MG TABLETS PO PRN (22:24)
[2017-09-13] MEDS: THIAMINE HCL 100 MG TABLET (FP) PO SCH (22:24)
[2017-09-14] MEDS: ACETAMINOPHEN 325 MG TABLET (FP) PO PRN ×2 (02:36→20:46)
[2017-09-14] MEDS: chlordiazePOXIDE HCL 10 MG CAPSULE PO SCH ×3 (05:14→17:38)
[2017-09-14] MEDS: IBUPROFEN 400 MG TABLET (FP) PO PRN ×2 (05:14→17:37)
[2017-09-14] MEDS: CYCLOBENZAPRINE HCL 10 MG TABLET (FP) PO PRN ×2 (05:15→17:38)
[2017-09-14] MEDS ORDERED: METHADONE HCL 10 MG TABLET (FOR DETOX USE ONLY) PO SCH (10:00)
[2017-09-14] MEDS: PRENATAL VITAMINS W/ FOLIC ACID TABLET (FP) PO SCH (10:35)
--- NOTE | 2017-09-14 14:16 | PN ---
[facility] Progress Note (SOAP) Subjective: Interrupted Sleep, Tremors, Constipation, Anxious. Objective: 09/14/17 14:13 Vital Signs Temperature 96.8 F L 09/14/17 10:00 Pulse Rate 76 09/14/17 10:00 Respiratory Rate 18 09/14/17 10:00 Blood Pressure 104/63 09/14/17 10:00 O2 Sat by Pulse Oximetry (%) Laboratory Tests 09/11/17 09/11/17 09/11/17 07:40 07:40 07:40 WBC 3.0 L RBC 3.83 L Hgb 12.0 Hct 34.4 L MCV 89.7 MCH 31.4 MCHC 35.0 RDW 12.7 Plt Count 240 MPV 8.0 Sodium 141 Potassium 4.1 Chloride 106 Carbon Dioxide 30 Anion Gap 5 L BUN 13 Creatinine 0.9 Creat Clearance w eGFR > 60 Random Glucose 96 Calcium 8.2 L Total Bilirubin 0.2 AST 15 D ALT 22 D Alkaline Phosphatase 77 Total Protein 5.8 L Albumin 3.1 L Urine Color Urine Appearance Urine pH Ur Specific [place] Urine Protein Urine Glucose (UA) Urine Ketones Urine Blood Urine Nitrite Urine Bilirubin Urine Urobilinogen Ur Leukocyte Esterase RPR Titer Nonreactive 09/12/17 13:20 WBC RBC Hgb Hct MCV MCH MCHC RDW Plt Count MPV Sodium Potassium Chloride Carbon Dioxide Anion Gap BUN Creatinine Creat Clearance w eGFR Random Glucose Calcium Total Bilirubin AST ALT Alkaline Phosphatase Total Protein Albumin Urine Color Ltyellow Urine Appearance Clear Urine pH 8.0 D Ur Specific [place] 1.010 Urine Protein Negative Urine Glucose (UA) Negative Urine Ketones Negative Urine Blood Negative Urine Nitrite Negative Urine Bilirubin Negative Urine Urobilinogen Negative Ur Leukocyte Esterase Negative RPR Titer LABS NOTED. Assessment: 09/14/17 14:13 WITHDRAWAL SYMPTOMS. ANEMIA. LEUKOPENIA. 09/14/17 14:16 Plan: CONTINUE DETOX. INCREASE DAILY PO FLUID INTAKE. PRN MOM FOR CONSTIPATION. PATIENT SCHEDULED FOR D/C TOMORROW.
[2017-09-14] MEDS: hydrOXYzine PAMOATE 50 MG CAPSULE (FP) PO PRN (20:46)
[2017-09-14] MEDS: MELATONIN 5 MG TABLETS PO PRN (20:47)
[2017-09-14] MEDS: THIAMINE HCL 100 MG TABLET (FP) PO SCH (22:23)
[2017-09-15] MEDS: hydrOXYzine PAMOATE 50 MG CAPSULE (FP) PO PRN (05:50)
[2017-09-15] MEDS: CYCLOBENZAPRINE HCL 10 MG TABLET (FP) PO PRN (05:50)
[2017-09-15] MEDS ORDERED: METHADONE HCL 5 MG TABLET (FOR DETOX USE ONLY) PO SCH (06:00)
[2017-09-15 09:34] VITALS: BP 115/69; PULSE 66; TEMP 98.6
[2017-09-15] MEDS: PRENATAL VITAMINS W/ FOLIC ACID TABLET (FP) PO SCH (10:29)
[2017-09-15] MEDS: IBUPROFEN 400 MG TABLET (FP) PO PRN (10:30)
--- NOTE | 2017-09-15 15:57 | PN ---
[facility] Progress Note (SOAP) Subjective: Patient denies current Detox symptoms and reports that he feels well overall. Objective: PATIENT A & O X 3, OBSERVED AMBULATING ON UNIT. NO ACUTE DISTRESS. 09/15/17 15:56 Vital Signs Temperature 98.6 F 09/15/17 09:33 Pulse Rate 66 09/15/17 09:33 Respiratory Rate 17 09/15/17 09:33 Blood Pressure 115/69 09/15/17 09:33 O2 Sat by Pulse Oximetry (%) Laboratory Tests 09/11/17 09/11/17 09/11/17 07:40 07:40 07:40 WBC 3.0 L RBC 3.83 L Hgb 12.0 Hct 34.4 L MCV 89.7 MCH 31.4 MCHC 35.0 RDW 12.7 Plt Count 240 MPV 8.0 Sodium 141 Potassium 4.1 Chloride 106 Carbon Dioxide 30 Anion Gap 5 L BUN 13 Creatinine 0.9 Creat Clearance w eGFR > 60 Random Glucose 96 Calcium 8.2 L Total Bilirubin 0.2 AST 15 D ALT 22 D Alkaline Phosphatase 77 Total Protein 5.8 L Albumin 3.1 L Urine Color Urine Appearance Urine pH Ur Specific [place] Urine Protein Urine Glucose (UA) Urine Ketones Urine Blood Urine Nitrite Urine Bilirubin Urine Urobilinogen Ur Leukocyte Esterase RPR Titer Nonreactive 09/12/17 13:20 WBC RBC Hgb Hct MCV MCH MCHC RDW Plt Count MPV Sodium Potassium Chloride Carbon Dioxide Anion Gap BUN Creatinine Creat Clearance w eGFR Random Glucose Calcium Total Bilirubin AST ALT Alkaline Phosphatase Total Protein Albumin Urine Color Ltyellow Urine Appearance Clear Urine pH 8.0 D Ur Specific [place] 1.010 Urine Protein Negative Urine Glucose (UA) Negative Urine Ketones Negative Urine Blood Negative Urine Nitrite Negative Urine Bilirubin Negative Urine Urobilinogen Negative Ur Leukocyte Esterase Negative RPR Titer LABS NOTED. Assessment: 09/15/17 15:56 COMPLETION OF DETOX REGIMEN. Plan: PATIENT SCHEDULED FOR DISCHARGE FROM DETOX UNIT TODAY.
--- NOTE | 2017-09-15 16:01 | DS ---
[facility] Detox Discharge Summary Admission Date: 09/10/17 Discharge Date: 09/15/17 - History Present History: Alcohol Dependence, Cocaine Dependence, Opioid Dependence Additional Comments: PATIENT GOING HOME AT THIS TIME, WILL BE MOVING TO [place] IN THE NEAR FUTURE. PATIENT ADVISED TO CONSIDER LOCAL 12-STEP / NA / AA OUTPATIENT PROGRAMS FOR AFTERCARE. PATIENT WAS DISCHARGED FROM DETOX UNIT IN STABLE MEDICAL CONDITION. Pertinent Past History: History of Depression, Anxiety. - Physical Exam Results Vital Signs: Vital Signs Temperature 98.6 F 09/15/17 09:33 Pulse Rate 66 09/15/17 09:33 Respiratory Rate 17 09/15/17 09:33 Blood Pressure 115/69 09/15/17 09:33 O2 Sat by Pulse Oximetry (%) Pertinent Admission Physical Exam Findings: WITHDRAWAL SYMPTOMS. Laboratory Tests 09/11/17 09/11/17 09/11/17 07:40 07:40 07:40 WBC 3.0 L RBC 3.83 L Hgb 12.0 Hct 34.4 L MCV 89.7 MCH 31.4 MCHC 35.0 RDW 12.7 Plt Count 240 MPV 8.0 Sodium 141 Potassium 4.1 Chloride 106 Carbon Dioxide 30 Anion Gap 5 L BUN 13 Creatinine 0.9 Creat Clearance w eGFR > 60 Random Glucose 96 Calcium 8.2 L Total Bilirubin 0.2 AST 15 D ALT 22 D Alkaline Phosphatase 77 Total Protein 5.8 L Albumin 3.1 L Urine Color Urine Appearance Urine pH Ur Specific [place] Urine Protein Urine Glucose (UA) Urine Ketones Urine Blood Urine Nitrite Urine Bilirubin Urine Urobilinogen Ur Leukocyte Esterase RPR Titer Nonreactive 09/12/17 13:20 WBC RBC Hgb Hct MCV MCH MCHC RDW Plt Count MPV Sodium Potassium Chloride Carbon Dioxide Anion Gap BUN Creatinine Creat Clearance w eGFR Random Glucose Calcium Total Bilirubin AST ALT Alkaline Phosphatase Total Protein Albumin Urine Color Ltyellow Urine Appearance Clear Urine pH 8.0 D Ur Specific [place] 1.010 Urine Protein Negative Urine Glucose (UA) Negative Urine Ketones Negative Urine Blood Negative Urine Nitrite Negative Urine Bilirubin Negative Urine Urobilinogen Negative Ur Leukocyte Esterase Negative RPR Titer LABS NOTED. - Treatment Hospital Course: Detox Protocol Followed, Detoxed Safely, Responded well, Discharged Condition Good Patient has Accepted a Rehab Referral to: PT MOVING TO [place], ADVISED TO CONSIDER LOCAL 12-STEP/NA/AA GROUPS. - Medication Discharge Medications: Ambulatory Orders NK [No Known Home Medication] 05/03/17 - Diagnosis (1) Alcohol dependence with uncomplicated withdrawal Status: Acute (2) Opioid dependence with withdrawal Status: Acute (3) Anxious mood Status: Chronic (4) Cocaine dependence Status: Chronic Qualifiers: Substance use status: uncomplicated Qualified Code(s): F14.20 - Cocaine dependence, uncomplicated (5) Depression Status: Chronic Qualifiers: Depression Type: unspecified Qualified Code(s): F32.9 - Major depressive disorder, single episode, unspecified - AMA Did Patient Leave Against Medical Advice: No
== END 2017-09-15 14:24 | disposition home or self-care (01) | DRG 773 ==
LOC: YASAS 19:07 → Y3N 21:21
PROVIDERS: ADMIT Surgery; ATTEND Surgery
PROC: HZ2ZZZZ Detoxification Services for Substance Abuse Treatment (ICD-10-PCS; principal; 2017-09-10)
DX: F11.23 Opioid dependence with withdrawal (principal); F10.230 Alcohol dependence with withdrawal, uncomplicated; F14.20 Cocaine dependence, uncomplicated; F32.9 Major depressive disorder, single episode, unspecified; F41.9 Anxiety disorder, unspecified; D64.9 Anemia, unspecified; D72.819 Decreased white blood cell count, unspecified; Z96.642 Presence of left artificial hip joint
CPT/HCPCS: 36415; 80053; 81003; 85027; 86593; 93005; 93010

== ENCOUNTER 2022-02-16 19:55 | Inpatient (IN) | payer OTHER ==
[2022-02-16 20:31] VITALS: BMI 33.7
[2022-02-16] MEDS ORDERED: IBUPROFEN 400 MG TABLET (FP) PO PRN (21:33)
[2022-02-16] MEDS ORDERED: LOPERAMIDE HCL 2 MG CAPSULE PO PRN (21:33)
[2022-02-16] MEDS ORDERED: POLYETHYLENE GLYCOL (HEALTHYLAX) 3350 17 GM PACKET PO PRN (21:33)
[2022-02-16] MEDS ORDERED: BENZOCAINE/MENTHOL (CHLORASEPTIC ) LOZENGE MM PRN (21:33)
[2022-02-16] MEDS ORDERED: ACETAMINOPHEN 325 MG TABLET (FP) PO PRN (21:33)
[2022-02-16] MEDS ORDERED: MAGNESIUM HYDROX 2400MG/30ML ORAL SUSPENSION 30 ML CUP PO PRN (21:33)
[2022-02-16] MEDS ORDERED: NALOXONE HCL (KLOXXADO) 8 MG SPRAY NS PRN (21:33)
[2022-02-16] MEDS ORDERED: ONDANSETRON *ODT* 4 MG TABLET SL PRN (21:33)
[2022-02-16] MEDS ORDERED: BISMUTH SUBSALICYLATE 524 MG/30 ML PO PRN (21:33)
[2022-02-16] MEDS ORDERED: guaiFENesin 200 MG/10 ML 10 ML UNIT-DOSE CUPS PO PRN (21:33)
[2022-02-16] MEDS ORDERED: IBUPROFEN 600 MG TABLET (FP) PO PRN (21:33)
[2022-02-16] MEDS ORDERED: P-EPHED 60MG/TRIPROLIDI 2.5MG TABLET PO PRN (21:33)
[2022-02-16] MEDS ORDERED: NALOXONE HCL 0.4 MG/ML VIAL IM PRN (21:33)
[2022-02-16] MEDS ORDERED: AMMONIUM LACTATE 12% LOTION 225 GM BOTTLE TP PRN (21:58)
[2022-02-16] MEDS: METHOCARBAMOL 500 MG TABLET PO PRN (22:52)
[2022-02-16] MEDS: diazePAM 5 MG TABLET PO PRN (22:52)
[2022-02-16] MEDS: THIAMINE HCL 100 MG TABLET (FP) PO SCH (22:53)
[2022-02-16] MEDS: MELATONIN 5 MG TABLETS PO PRN (22:53)
[2022-02-17] MEDS: diazePAM 5 MG TABLET PO PRN ×2 (06:31→13:12)
[2022-02-17] MEDS: PRENATAL VITAMINS W/ FOLIC ACID TABLET (FP) PO SCH (10:05)
[2022-02-17] MEDS ORDERED: cloNIDine HCL 0.1 MG TABLET PO PRN (10:07)
[2022-02-17] MEDS: METHOCARBAMOL 500 MG TABLET PO PRN ×2 (10:43→22:32)
[2022-02-17] MEDS: diazePAM 5 MG TABLET PO SCH ×3 (10:52→22:34)
[2022-02-17] MEDS ORDERED: methaDONE HCL 10 MG TABLET (FOR DETOX USE ONLY) PO ONE (11:00)
[2022-02-17 12:51] LABS: HEMOGLOBIN 13.3 GM/dL (11.7-16.9); MCH 31.1 pg (25.7-33.7); MCHC 34.2 g/dl (32.0-35.9); MEAN CELL VOLUME 90.9 fl (80-96); PLATELET COUNT 256 10^3/uL (134-434); RBC 4.29 M/mm3 (4.00-5.60); RDW 13.1 % (11.9-15.9); WHITE BLOOD COUNT 3.3 K/mm3 (4.0-10.0)
[2022-02-17 13:26] LABS: ALBUMIN 3.4 g/dl (3.4-5.0); BLOOD UREA NITROGEN 11.9 mg/dL (7-18); CALCIUM 8.8 mg/dL (8.5-10.1)
[2022-02-17 13:29] LABS: CREATININE 0.9 mg/dL (0.55-1.3)
[2022-02-17 13:31] LABS: BILIRUBIN,TOTAL 0.6 mg/dL (0.2-1); TOT PROT 6.8 g/dl (6.4-8.2)
[2022-02-17] MEDS: MAG HYDROX/AL HYDROX/SIMETH 30 ML UNIT-DOSE CUP PO PRN ×2 (17:34→22:52)
[2022-02-17] MEDS: ACETAMINOPHEN 325 MG TABLET (FP) PO PRN (17:35)
[2022-02-17] MEDS: MELATONIN 5 MG TABLETS PO PRN (22:32)
[2022-02-17] MEDS: THIAMINE HCL 100 MG TABLET (FP) PO SCH (22:35)
[2022-02-17] MEDS: DICYCLOMINE HCL 10 MG CAPSULE PO PRN (22:51)
[2022-02-18] MEDS: diazePAM 5 MG TABLET PO PRN ×3 (03:01→19:56)
[2022-02-18] MEDS: diazePAM 5 MG TABLET PO SCH ×4 (05:43→22:10)
[2022-02-18] MEDS: PRENATAL VITAMINS W/ FOLIC ACID TABLET (FP) PO SCH (10:00)
[2022-02-18] MEDS: ACETAMINOPHEN 325 MG TABLET (FP) PO PRN (10:04)
[2022-02-18] MEDS: hydrOXYzine PAMOATE 25 MG CAPSULE (FP) PO PRN ×2 (11:57→22:12)
[2022-02-18] MEDS: METHOCARBAMOL 500 MG TABLET PO PRN ×2 (12:16→22:09)
[2022-02-18] MEDS: DICYCLOMINE HCL 10 MG CAPSULE PO PRN (17:29)
[2022-02-18] MEDS: cloNIDine HCL 0.1 MG TABLET PO PRN (18:05)
[2022-02-18] MEDS ORDERED: QUEtiapine FUMARATE 100 MG TABLET (FP) PO SCH (22:00)
[2022-02-18] MEDS: MELATONIN 5 MG TABLETS PO PRN (22:09)
[2022-02-18] MEDS: THIAMINE HCL 100 MG TABLET (FP) PO SCH (22:09)
[2022-02-19] MEDS: diazePAM 5 MG TABLET PO SCH ×3 (05:34→22:27)
[2022-02-19] MEDS: MAG HYDROX/AL HYDROX/SIMETH 30 ML UNIT-DOSE CUP PO PRN (08:29)
[2022-02-19] MEDS: DICYCLOMINE HCL 10 MG CAPSULE PO PRN (08:29)
[2022-02-19] MEDS: diazePAM 5 MG TABLET PO PRN (09:59)
[2022-02-19] MEDS: PRENATAL VITAMINS W/ FOLIC ACID TABLET (FP) PO SCH (10:00)
[2022-02-19] MEDS ORDERED: methaDONE HCL 10 MG TABLET (FOR DETOX USE ONLY) PO ONE (10:00)
[2022-02-19] MEDS: hydrOXYzine PAMOATE 25 MG CAPSULE (FP) PO PRN ×2 (10:02→18:29)
[2022-02-19] MEDS: METHOCARBAMOL 500 MG TABLET PO PRN (18:29)
[2022-02-19] MEDS: cloNIDine HCL 0.1 MG TABLET PO PRN ×2 (18:29→22:27)
[2022-02-19] MEDS: MELATONIN 5 MG TABLETS PO PRN (22:23)
[2022-02-19] MEDS: THIAMINE HCL 100 MG TABLET (FP) PO SCH (22:23)
[2022-02-20] MEDS: diazePAM 5 MG TABLET PO PRN (01:39)
[2022-02-20] MEDS: diazePAM 5 MG TABLET PO SCH ×2 (06:10→18:11)
[2022-02-20] MEDS: DICYCLOMINE HCL 10 MG CAPSULE PO PRN ×2 (06:12→21:10)
[2022-02-20] MEDS: PRENATAL VITAMINS W/ FOLIC ACID TABLET (FP) PO SCH (10:11)
[2022-02-20] MEDS: hydrOXYzine PAMOATE 25 MG CAPSULE (FP) PO PRN ×2 (10:11→16:07)
[2022-02-20] MEDS: METHOCARBAMOL 500 MG TABLET PO PRN ×2 (10:11→21:11)
[2022-02-20] MEDS: MAG HYDROX/AL HYDROX/SIMETH 30 ML UNIT-DOSE CUP PO PRN (10:16)
[2022-02-20] MEDS: MELATONIN 5 MG TABLETS PO PRN (21:09)
[2022-02-20] MEDS: THIAMINE HCL 100 MG TABLET (FP) PO SCH (21:10)
[2022-02-20] MEDS: cloNIDine HCL 0.1 MG TABLET PO PRN (21:10)
[2022-02-21] MEDS: hydrOXYzine PAMOATE 25 MG CAPSULE (FP) PO PRN ×4 (02:28→23:21)
[2022-02-21] MEDS: METHOCARBAMOL 500 MG TABLET PO PRN ×3 (02:28→22:46)
[2022-02-21] MEDS ORDERED: diazePAM 5 MG TABLET PO ONE (06:00)
[2022-02-21] MEDS ORDERED: methaDONE HCL 10 MG TABLET (FOR DETOX USE ONLY) PO ONE (10:00)
[2022-02-21] MEDS: cloNIDine HCL 0.1 MG TABLET PO PRN (10:30)
[2022-02-21] MEDS: PRENATAL VITAMINS W/ FOLIC ACID TABLET (FP) PO SCH (10:32)
[2022-02-21] MEDS: MAG HYDROX/AL HYDROX/SIMETH 30 ML UNIT-DOSE CUP PO PRN ×2 (14:44→18:16)
[2022-02-21 17:20] VITALS: RESP 18
[2022-02-21] MEDS: MELATONIN 5 MG TABLETS PO PRN (22:44)
[2022-02-21] MEDS: THIAMINE HCL 100 MG TABLET (FP) PO SCH (22:48)
[2022-02-22] MEDS: hydrOXYzine PAMOATE 25 MG CAPSULE (FP) PO PRN (05:51)
[2022-02-22] MEDS: PRENATAL VITAMINS W/ FOLIC ACID TABLET (FP) PO SCH (10:36)
[2022-02-22] MEDS: MAG HYDROX/AL HYDROX/SIMETH 30 ML UNIT-DOSE CUP PO PRN (10:36)
[2022-02-22 10:59] VITALS: BP 105/69; PULSE 80; TEMP 97.7
== END 2022-02-22 10:57 | disposition home or self-care (01) | DRG 773 ==
LOC: YASAS 19:55 → UNDOADMIN 21:36 → Y3N 21:36
PROVIDERS: ADMIT Allergy & Immunology; ATTEND Surgery
PROC: HZ2ZZZZ Detoxification Services for Substance Abuse Treatment (ICD-10-PCS; principal; 2022-02-16)
DX: F11.23 Opioid dependence with withdrawal (principal); F10.230 Alcohol dependence with withdrawal, uncomplicated; F19.24 Other psychoactive substance dependence with psychoactive substance-induced mood disorder; G47.00 Insomnia, unspecified; Z96.642 Presence of left artificial hip joint
CPT/HCPCS: 36415; 80053; 85027; 86780; C9803-CS; Q0162; U0003; U0005

== ENCOUNTER 2022-02-26 04:02 | Inpatient (IN) | payer OTHER ==
[2022-02-25 23:43] VITALS: BMI 32.3
[~2022-02-26 04:02] MED LIST: BENZOCAINE/MENTHOL (CHLORASEPTIC ) LOZENGE MM PRN; LOPERAMIDE HCL 2 MG CAPSULE PO PRN; P-EPHED 60MG/TRIPROLIDI 2.5MG TABLET PO PRN; guaiFENesin 200 MG/10 ML 10 ML UNIT-DOSE CUPS PO PRN
[2022-02-26] MEDS: IBUPROFEN 400 MG TABLET (FP) PO PRN ×2 (06:40→18:12)
[2022-02-26] MEDS: PRENATAL VITAMINS W/ FOLIC ACID TABLET (FP) PO SCH (10:12)
[2022-02-26] MEDS: methaDONE HCL 10 MG TABLET PO SCH (10:13)
[2022-02-26 11:26] LABS: PH,URINE 5.5 (5.0-8.0); URINE APPEARANCE CLOUDY; URINE BILIRUBIN NEGATIVE (NEGATIVE); URINE COLOR YELLOW; URINE GLUCOSE (UA) NEGATIVE (NEGATIVE); URINE KETONE TRACE (NEGATIVE); URINE LEUK ESTERASE NEGATIVE (NEGATIVE); URINE NITRITE NEGATIVE (NEGATIVE); URINE PROTEIN TRACE (NEGATIVE); URINE UROBILINOGEN 0.2 mg/dL (0.2-1.0)
[2022-02-26 11:27] LABS: HEMATOCRIT 38.4 % (35.4-49); HEMOGLOBIN 13.2 GM/dL (11.7-16.9); MCH 31.4 pg (25.7-33.7); MCHC 34.3 g/dl (32.0-35.9); MEAN CELL VOLUME 91.6 fl (80-96); MEAN PLT VOLUME 8.1 fl (7.5-11.1); PLATELET COUNT 290 10^3/uL (134-434); RBC 4.19 M/mm3 (4.00-5.60); RDW 12.6 % (11.9-15.9); WHITE BLOOD COUNT 4.8 K/mm3 (4.0-10.0)
[2022-02-26 11:37] LABS: ALBUMIN 3.5 g/dl (3.4-5.0); BLOOD UREA NITROGEN 12.2 mg/dL (7-18); CALCIUM 8.8 mg/dL (8.5-10.1)
[2022-02-26 11:40] LABS: CREATININE 1.2 mg/dL (0.55-1.3)
[2022-02-26 11:42] LABS: BILIRUBIN,TOTAL 0.4 mg/dL (0.2-1); TOT PROT 6.8 g/dl (6.4-8.2)
[2022-02-26] MEDS: MAG HYDROX/AL HYDROX/SIMETH 30 ML UNIT-DOSE CUP PO PRN (18:09)
[2022-02-26] MEDS: hydrOXYzine PAMOATE 25 MG CAPSULE (FP) PO PRN ×2 (18:09→22:09)
[2022-02-26] MEDS ORDERED: MELATONIN 5 MG TABLETS PO SCH (22:00)
[2022-02-26] MEDS: THIAMINE HCL 100 MG TABLET (FP) PO SCH (22:08)
[2022-02-26] MEDS: ACETAMINOPHEN 325 MG TABLET (FP) PO PRN (22:10)
[2022-02-27] MEDS: methaDONE HCL 10 MG TABLET PO SCH (06:41)
[2022-02-27] MEDS: PRENATAL VITAMINS W/ FOLIC ACID TABLET (FP) PO SCH (09:36)
[2022-02-27] MEDS: ACETAMINOPHEN 325 MG TABLET (FP) PO PRN (09:37)
[2022-02-27] MEDS: IBUPROFEN 400 MG TABLET (FP) PO PRN ×2 (11:55→19:50)
[2022-02-27] MEDS ORDERED: BISMUTH SUBSALICYLATE 262 MG/15 ML BTL PO ONE (18:01)
[2022-02-27] MEDS: MELATONIN 5 MG TABLETS PO SCH (21:33)
[2022-02-27] MEDS: THIAMINE HCL 100 MG TABLET (FP) PO SCH (21:33)
[2022-02-27] MEDS: METHYL SALICYLATE/MENTHOL OINT 30 GM TUBE TP SCH (21:33)
[2022-02-27] MEDS: hydrOXYzine PAMOATE 25 MG CAPSULE (FP) PO PRN (21:34)
[2022-02-28] MEDS: methaDONE HCL 40 MG DISPERSABLE TABLET PO SCH (06:13)
[2022-02-28] MEDS: METHYL SALICYLATE/MENTHOL OINT 30 GM TUBE TP SCH ×2 (09:02→21:32)
[2022-02-28] MEDS: PRENATAL VITAMINS W/ FOLIC ACID TABLET (FP) PO SCH (09:02)
[2022-02-28] MEDS: IBUPROFEN 400 MG TABLET (FP) PO PRN ×2 (09:04→16:30)
[2022-02-28] MEDS: hydrOXYzine PAMOATE 25 MG CAPSULE (FP) PO PRN (09:04)
[2022-02-28] MEDS: MAG HYDROX/AL HYDROX/SIMETH 30 ML UNIT-DOSE CUP PO PRN (09:05)
[2022-02-28] MEDS: ACETAMINOPHEN 325 MG TABLET (FP) PO PRN ×2 (12:26→21:34)
[2022-02-28] MEDS: MELATONIN 5 MG TABLETS PO SCH (21:32)
[2022-02-28] MEDS: THIAMINE HCL 100 MG TABLET (FP) PO SCH (21:32)
[2022-03-01] MEDS: IBUPROFEN 400 MG TABLET (FP) PO PRN ×2 (06:32→13:14)
[2022-03-01] MEDS: methaDONE HCL 40 MG DISPERSABLE TABLET PO SCH (06:32)
[2022-03-01] MEDS: PRENATAL VITAMINS W/ FOLIC ACID TABLET (FP) PO SCH (09:41)
[2022-03-01] MEDS: METHYL SALICYLATE/MENTHOL OINT 30 GM TUBE TP SCH ×2 (09:42→21:15)
[2022-03-01] MEDS: MAG HYDROX/AL HYDROX/SIMETH 30 ML UNIT-DOSE CUP PO PRN (09:43)
[2022-03-01] MEDS: MELATONIN 5 MG TABLETS PO SCH (21:15)
[2022-03-01] MEDS: THIAMINE HCL 100 MG TABLET (FP) PO SCH (21:15)
[2022-03-01] MEDS: hydrOXYzine PAMOATE 25 MG CAPSULE (FP) PO PRN (21:16)
[2022-03-01] MEDS: ACETAMINOPHEN 325 MG TABLET (FP) PO PRN (21:16)
[2022-03-01] MEDS: BACLOFEN 10 MG TABLET (FP) PO PRN (21:16)
[2022-03-02] MEDS ORDERED: methaDONE HCL 10 MG TABLET PO SCH (06:00)
[2022-03-02] MEDS: methaDONE 40 MG, methaDONE 10 MG PO SCH (06:17)
[2022-03-02] MEDS: PRENATAL VITAMINS W/ FOLIC ACID TABLET (FP) PO SCH (10:15)
[2022-03-02] MEDS: METHYL SALICYLATE/MENTHOL OINT 30 GM TUBE TP SCH ×2 (10:15→21:11)
[2022-03-02] MEDS: hydrOXYzine PAMOATE 25 MG CAPSULE (FP) PO PRN ×2 (10:17→21:11)
[2022-03-02] MEDS: BACLOFEN 10 MG TABLET (FP) PO PRN ×2 (10:17→21:11)
[2022-03-02] MEDS: THIAMINE HCL 100 MG TABLET (FP) PO SCH (21:11)
[2022-03-02] MEDS: MELATONIN 5 MG TABLETS PO SCH (21:12)
[2022-03-03] MEDS: methaDONE 40 MG, methaDONE 10 MG PO SCH (06:16)
[2022-03-03] MEDS: METHYL SALICYLATE/MENTHOL OINT 30 GM TUBE TP SCH ×2 (09:08→21:41)
[2022-03-03] MEDS: PRENATAL VITAMINS W/ FOLIC ACID TABLET (FP) PO SCH (09:08)
[2022-03-03] MEDS: BACLOFEN 10 MG TABLET (FP) PO PRN ×2 (09:09→21:42)
[2022-03-03] MEDS: hydrOXYzine PAMOATE 25 MG CAPSULE (FP) PO PRN ×2 (09:09→21:41)
[2022-03-03] MEDS: IBUPROFEN 400 MG TABLET (FP) PO PRN (14:02)
[2022-03-03] MEDS: MELATONIN 5 MG TABLETS PO SCH (21:41)
[2022-03-03] MEDS: THIAMINE HCL 100 MG TABLET (FP) PO SCH (21:41)
[2022-03-04] MEDS: hydrOXYzine PAMOATE 25 MG CAPSULE (FP) PO PRN ×2 (06:17→21:21)
[2022-03-04] MEDS: IBUPROFEN 400 MG TABLET (FP) PO PRN (06:18)
[2022-03-04] MEDS ORDERED: methaDONE HCL 10 MG TABLET PO ONE (06:48)
[2022-03-04] MEDS ORDERED: ONDANSETRON *ODT* 4 MG TABLET SL ONE (07:31)
[2022-03-04] MEDS ORDERED: methaDONE 40 MG, methaDONE 20 MG PO ONE (08:55)
[2022-03-04] MEDS: METHYL SALICYLATE/MENTHOL OINT 30 GM TUBE TP SCH ×2 (09:00→21:35)
[2022-03-04] MEDS: PRENATAL VITAMINS W/ FOLIC ACID TABLET (FP) PO SCH (09:00)
[2022-03-04] MEDS: BACLOFEN 10 MG TABLET (FP) PO PRN ×2 (09:01→21:22)
[2022-03-04] MEDS ORDERED: methaDONE HCL 10 MG TABLET PO SCH (10:45)
[2022-03-04] MEDS ORDERED: ONDANSETRON *ODT* 4 MG TABLET SL PRN (11:49)
[2022-03-04] MEDS: MELATONIN 5 MG TABLETS PO SCH (21:21)
[2022-03-04] MEDS: THIAMINE HCL 100 MG TABLET (FP) PO SCH (21:21)
[2022-03-05] MEDS ORDERED: methaDONE HCL 10 MG TABLET PO SCH (06:00)
[2022-03-05] MEDS: methaDONE 40 MG, methaDONE 20 MG PO SCH (06:18)
[2022-03-05] MEDS: METHYL SALICYLATE/MENTHOL OINT 30 GM TUBE TP SCH ×2 (09:41→21:28)
[2022-03-05] MEDS: PRENATAL VITAMINS W/ FOLIC ACID TABLET (FP) PO SCH (09:42)
[2022-03-05] MEDS: BACLOFEN 10 MG TABLET (FP) PO PRN ×2 (09:42→21:28)
[2022-03-05] MEDS: hydrOXYzine PAMOATE 25 MG CAPSULE (FP) PO PRN (21:28)
[2022-03-05] MEDS: THIAMINE HCL 100 MG TABLET (FP) PO SCH (21:28)
[2022-03-05] MEDS: MELATONIN 5 MG TABLETS PO SCH (21:28)
[2022-03-05] MEDS: MAG HYDROX/AL HYDROX/SIMETH 30 ML UNIT-DOSE CUP PO PRN (22:50)
[2022-03-06] MEDS: methaDONE 40 MG, methaDONE 20 MG PO SCH (06:45)
[2022-03-06] MEDS: METHYL SALICYLATE/MENTHOL OINT 30 GM TUBE TP SCH ×2 (10:24→22:17)
[2022-03-06] MEDS: PRENATAL VITAMINS W/ FOLIC ACID TABLET (FP) PO SCH (10:24)
[2022-03-06] MEDS: BACLOFEN 10 MG TABLET (FP) PO PRN (10:25)
[2022-03-06] MEDS: hydrOXYzine PAMOATE 25 MG CAPSULE (FP) PO PRN (10:25)
[2022-03-06] MEDS: MAGNESIUM HYDROX 2400MG/30ML ORAL SUSPENSION 30 ML CUP PO PRN (12:46)
[2022-03-06] MEDS: MELATONIN 5 MG TABLETS PO SCH (22:16)
[2022-03-06] MEDS: THIAMINE HCL 100 MG TABLET (FP) PO SCH (22:17)
[2022-03-07] MEDS: methaDONE 40 MG, methaDONE 20 MG PO SCH (06:31)
[2022-03-07] MEDS: POLYETHYLENE GLYCOL (HEALTHYLAX) 3350 17 GM PACKET PO PRN (08:42)
[2022-03-07] MEDS: PRENATAL VITAMINS W/ FOLIC ACID TABLET (FP) PO SCH (09:21)
[2022-03-07] MEDS: METHYL SALICYLATE/MENTHOL OINT 30 GM TUBE TP SCH ×2 (09:21→21:41)
[2022-03-07] MEDS: BACLOFEN 10 MG TABLET (FP) PO PRN ×2 (09:21→21:38)
[2022-03-07] MEDS: hydrOXYzine PAMOATE 25 MG CAPSULE (FP) PO PRN (21:38)
[2022-03-07] MEDS: MELATONIN 5 MG TABLETS PO SCH (21:38)
[2022-03-07] MEDS: THIAMINE HCL 100 MG TABLET (FP) PO SCH (21:38)
[2022-03-07] MEDS: MAG HYDROX/AL HYDROX/SIMETH 30 ML UNIT-DOSE CUP PO PRN (21:40)
[2022-03-08] MEDS: methaDONE 40 MG, methaDONE 20 MG PO SCH (06:14)
[2022-03-08] MEDS: PRENATAL VITAMINS W/ FOLIC ACID TABLET (FP) PO SCH (10:20)
[2022-03-08] MEDS: METHYL SALICYLATE/MENTHOL OINT 30 GM TUBE TP SCH ×2 (10:20→21:23)
[2022-03-08] MEDS: POLYETHYLENE GLYCOL (HEALTHYLAX) 3350 17 GM PACKET PO PRN (10:23)
[2022-03-08] MEDS: BACLOFEN 10 MG TABLET (FP) PO PRN ×2 (10:23→21:23)
[2022-03-08] MEDS: hydrOXYzine PAMOATE 25 MG CAPSULE (FP) PO PRN ×2 (10:23→21:22)
[2022-03-08] MEDS: ACETAMINOPHEN 325 MG TABLET (FP) PO PRN (13:55)
[2022-03-08] MEDS: MELATONIN 5 MG TABLETS PO SCH (21:22)
[2022-03-08] MEDS: THIAMINE HCL 100 MG TABLET (FP) PO SCH (21:22)
[2022-03-09] MEDS ORDERED: methaDONE HCL 10 MG TABLET PO SCH (06:00)
[2022-03-09] MEDS: methaDONE 40 MG, methaDONE 30 MG PO SCH (06:03)
[2022-03-09] MEDS: PRENATAL VITAMINS W/ FOLIC ACID TABLET (FP) PO SCH (10:35)
[2022-03-09] MEDS: hydrOXYzine PAMOATE 25 MG CAPSULE (FP) PO PRN ×2 (10:35→21:10)
[2022-03-09] MEDS: METHYL SALICYLATE/MENTHOL OINT 30 GM TUBE TP SCH ×2 (10:36→21:22)
[2022-03-09] MEDS: BACLOFEN 10 MG TABLET (FP) PO PRN ×2 (10:36→21:11)
[2022-03-09] MEDS: IBUPROFEN 400 MG TABLET (FP) PO PRN (17:38)
[2022-03-09] MEDS: DOCUSATE SODIUM 100 MG CAPSULE (FP) PO PRN (21:10)
[2022-03-09] MEDS: MELATONIN 5 MG TABLETS PO SCH (21:10)
[2022-03-09] MEDS: THIAMINE HCL 100 MG TABLET (FP) PO SCH (21:10)
[2022-03-10] MEDS: methaDONE 40 MG, methaDONE 30 MG PO SCH (06:08)
[2022-03-10] MEDS: METHYL SALICYLATE/MENTHOL OINT 30 GM TUBE TP SCH ×2 (09:25→21:29)
[2022-03-10] MEDS: PRENATAL VITAMINS W/ FOLIC ACID TABLET (FP) PO SCH (09:25)
[2022-03-10] MEDS: hydrOXYzine PAMOATE 25 MG CAPSULE (FP) PO PRN ×2 (09:27→21:28)
[2022-03-10] MEDS: ALBUTEROL SO4 HFA INHALER IH PRN ×2 (09:29→13:13)
[2022-03-10] MEDS: BACLOFEN 10 MG TABLET (FP) PO PRN (21:27)
[2022-03-10] MEDS: DOCUSATE SODIUM 100 MG CAPSULE (FP) PO PRN (21:27)
[2022-03-10] MEDS: THIAMINE HCL 100 MG TABLET (FP) PO SCH (21:27)
[2022-03-10] MEDS: MELATONIN 5 MG TABLETS PO SCH (21:28)
[2022-03-11] MEDS: methaDONE 40 MG, methaDONE 30 MG PO SCH (06:23)
[2022-03-11] MEDS: METHYL SALICYLATE/MENTHOL OINT 30 GM TUBE TP SCH ×2 (09:34→21:22)
[2022-03-11] MEDS: PRENATAL VITAMINS W/ FOLIC ACID TABLET (FP) PO SCH (09:34)
[2022-03-11] MEDS: hydrOXYzine PAMOATE 25 MG CAPSULE (FP) PO PRN (09:36)
[2022-03-11] MEDS: BACLOFEN 10 MG TABLET (FP) PO PRN ×2 (09:36→21:21)
[2022-03-11] MEDS: ALBUTEROL SO4 HFA INHALER IH PRN (10:03)
[2022-03-11] MEDS: MELATONIN 5 MG TABLETS PO SCH (21:21)
[2022-03-11] MEDS: THIAMINE HCL 100 MG TABLET (FP) PO SCH (21:21)
[2022-03-11] MEDS: DOCUSATE SODIUM 100 MG CAPSULE (FP) PO PRN (21:21)
[2022-03-12] MEDS: methaDONE 40 MG, methaDONE 30 MG PO SCH (06:40)
[2022-03-12] MEDS: PRENATAL VITAMINS W/ FOLIC ACID TABLET (FP) PO SCH (09:57)
[2022-03-12] MEDS: hydrOXYzine PAMOATE 25 MG CAPSULE (FP) PO PRN ×2 (09:57→21:20)
[2022-03-12] MEDS: METHYL SALICYLATE/MENTHOL OINT 30 GM TUBE TP SCH ×2 (10:08→21:57)
[2022-03-12] MEDS: ALBUTEROL SO4 HFA INHALER IH PRN ×2 (12:05→18:54)
[2022-03-12] MEDS: THIAMINE HCL 100 MG TABLET (FP) PO SCH (21:20)
[2022-03-12] MEDS: DOCUSATE SODIUM 100 MG CAPSULE (FP) PO PRN (21:20)
[2022-03-12] MEDS: BACLOFEN 10 MG TABLET (FP) PO PRN (21:20)
[2022-03-12] MEDS: IBUPROFEN 400 MG TABLET (FP) PO PRN (21:20)
[2022-03-12] MEDS: MELATONIN 5 MG TABLETS PO SCH (21:57)
[2022-03-13] MEDS: methaDONE 40 MG, methaDONE 30 MG PO SCH (06:30)
[2022-03-13] MEDS: PRENATAL VITAMINS W/ FOLIC ACID TABLET (FP) PO SCH (09:05)
[2022-03-13] MEDS: METHYL SALICYLATE/MENTHOL OINT 30 GM TUBE TP SCH ×2 (09:05→21:24)
[2022-03-13] MEDS: hydrOXYzine PAMOATE 25 MG CAPSULE (FP) PO PRN ×2 (09:05→21:23)
[2022-03-13] MEDS: POLYETHYLENE GLYCOL (HEALTHYLAX) 3350 17 GM PACKET PO PRN (09:06)
[2022-03-13] MEDS: DOCUSATE SODIUM 100 MG CAPSULE (FP) PO PRN ×2 (10:49→21:23)
[2022-03-13] MEDS: BACLOFEN 10 MG TABLET (FP) PO PRN (21:23)
[2022-03-13] MEDS: THIAMINE HCL 100 MG TABLET (FP) PO SCH (21:23)
[2022-03-13] MEDS: MELATONIN 5 MG TABLETS PO SCH (21:23)
[2022-03-14] MEDS: methaDONE 40 MG, methaDONE 30 MG PO SCH (06:21)
[2022-03-14] MEDS: PRENATAL VITAMINS W/ FOLIC ACID TABLET (FP) PO SCH (10:14)
[2022-03-14] MEDS: METHYL SALICYLATE/MENTHOL OINT 30 GM TUBE TP SCH ×2 (10:49→21:24)
[2022-03-14] MEDS: hydrOXYzine PAMOATE 25 MG CAPSULE (FP) PO PRN ×2 (10:50→21:17)
[2022-03-14] MEDS: BACLOFEN 10 MG TABLET (FP) PO PRN ×2 (10:50→21:17)
[2022-03-14] MEDS: MAGNESIUM HYDROX 2400MG/30ML ORAL SUSPENSION 30 ML CUP PO PRN (12:53)
[2022-03-14] MEDS: DOCUSATE SODIUM 100 MG CAPSULE (FP) PO PRN ×2 (17:12→21:17)
[2022-03-14] MEDS: MELATONIN 5 MG TABLETS PO SCH (21:17)
[2022-03-14] MEDS: THIAMINE HCL 100 MG TABLET (FP) PO SCH (21:17)
[2022-03-15] MEDS: methaDONE 40 MG, methaDONE 30 MG PO SCH (06:55)
[2022-03-15] MEDS: POLYETHYLENE GLYCOL (HEALTHYLAX) 3350 17 GM PACKET PO PRN (10:38)
[2022-03-15] MEDS: PRENATAL VITAMINS W/ FOLIC ACID TABLET (FP) PO SCH (10:39)
[2022-03-15] MEDS: BACLOFEN 10 MG TABLET (FP) PO PRN (10:40)
[2022-03-15] MEDS: hydrOXYzine PAMOATE 25 MG CAPSULE (FP) PO PRN ×2 (10:41→21:16)
[2022-03-15] MEDS: METHYL SALICYLATE/MENTHOL OINT 30 GM TUBE TP SCH ×2 (10:42→21:16)
[2022-03-15] MEDS: DOCUSATE SODIUM 100 MG CAPSULE (FP) PO PRN ×2 (14:03→21:15)
[2022-03-15] MEDS: THIAMINE HCL 100 MG TABLET (FP) PO SCH (21:15)
[2022-03-15] MEDS: MELATONIN 5 MG TABLETS PO SCH (21:15)
[2022-03-16] MEDS: methaDONE 40 MG, methaDONE 30 MG PO SCH (06:44)
[2022-03-16] MEDS: POLYETHYLENE GLYCOL (HEALTHYLAX) 3350 17 GM PACKET PO PRN (09:53)
[2022-03-16] MEDS: hydrOXYzine PAMOATE 25 MG CAPSULE (FP) PO PRN ×2 (09:53→21:40)
[2022-03-16] MEDS: PRENATAL VITAMINS W/ FOLIC ACID TABLET (FP) PO SCH (09:53)
[2022-03-16] MEDS: BACLOFEN 10 MG TABLET (FP) PO PRN ×2 (09:53→21:40)
[2022-03-16] MEDS: METHYL SALICYLATE/MENTHOL OINT 30 GM TUBE TP SCH ×2 (09:54→21:58)
[2022-03-16] MEDS: THIAMINE HCL 100 MG TABLET (FP) PO SCH (21:40)
[2022-03-16] MEDS: DOCUSATE SODIUM 100 MG CAPSULE (FP) PO PRN (21:40)
[2022-03-16] MEDS: MAGNESIUM HYDROX 2400MG/30ML ORAL SUSPENSION 30 ML CUP PO PRN (21:40)
[2022-03-16] MEDS: MELATONIN 5 MG TABLETS PO SCH (21:58)
[2022-03-17] MEDS: methaDONE 40 MG, methaDONE 30 MG PO SCH (06:11)
[2022-03-17] MEDS: METHYL SALICYLATE/MENTHOL OINT 30 GM TUBE TP SCH ×2 (10:06→21:22)
[2022-03-17] MEDS: PRENATAL VITAMINS W/ FOLIC ACID TABLET (FP) PO SCH (10:06)
[2022-03-17] MEDS: POLYETHYLENE GLYCOL (HEALTHYLAX) 3350 17 GM PACKET PO PRN (10:08)
[2022-03-17] MEDS: DOCUSATE SODIUM 100 MG CAPSULE (FP) PO PRN ×2 (10:08→21:21)
[2022-03-17] MEDS: hydrOXYzine PAMOATE 25 MG CAPSULE (FP) PO PRN (10:08)
[2022-03-17] MEDS: ALBUTEROL SO4 HFA INHALER IH PRN (15:12)
[2022-03-17] MEDS: THIAMINE HCL 100 MG TABLET (FP) PO SCH (21:21)
[2022-03-17] MEDS: MELATONIN 5 MG TABLETS PO SCH (21:22)
[2022-03-18] MEDS: methaDONE 40 MG, methaDONE 30 MG PO SCH (06:13)
[2022-03-18] MEDS: ACETAMINOPHEN 325 MG TABLET (FP) PO PRN (07:29)
[2022-03-18] MEDS: ALBUTEROL SO4 HFA INHALER IH PRN (07:34)
[2022-03-18] MEDS: METHYL SALICYLATE/MENTHOL OINT 30 GM TUBE TP SCH ×2 (10:06→23:07)
[2022-03-18] MEDS: PRENATAL VITAMINS W/ FOLIC ACID TABLET (FP) PO SCH (10:07)
[2022-03-18] MEDS: DOCUSATE SODIUM 100 MG CAPSULE (FP) PO PRN (10:07)
[2022-03-18] MEDS: BACLOFEN 10 MG TABLET (FP) PO PRN (10:08)
[2022-03-18] MEDS: POLYETHYLENE GLYCOL (HEALTHYLAX) 3350 17 GM PACKET PO PRN (10:08)
[2022-03-18] MEDS: hydrOXYzine PAMOATE 25 MG CAPSULE (FP) PO PRN ×2 (10:08→18:22)
[2022-03-18] MEDS: MELATONIN 5 MG TABLETS PO SCH (23:07)
[2022-03-18] MEDS: THIAMINE HCL 100 MG TABLET (FP) PO SCH (23:07)
[2022-03-19] MEDS: methaDONE 40 MG, methaDONE 30 MG PO SCH (06:18)
[2022-03-19 08:21] VITALS: BP 121/74; PULSE 75; RESP 18; TEMP 97.2
== END 2022-03-19 07:10 | disposition home or self-care (01) | DRG 772 ==
LOC: YASAS 04:02 → Y3E 04:04
PROVIDERS: ADMIT Allergy & Immunology; ATTEND Psychiatry & Neurology Pain Medicine
PROC: HZ42ZZZ Group Counseling for Substance Abuse Treatment, Cognitive-Behavioral (ICD-10-PCS; principal; 2022-02-26)
DX: F11.20 Opioid dependence, uncomplicated (principal); F10.20 Alcohol dependence, uncomplicated; F14.20 Cocaine dependence, uncomplicated; F19.24 Other psychoactive substance dependence with psychoactive substance-induced mood disorder; F41.9 Anxiety disorder, unspecified; F32.A Depression, unspecified; J45.909 Unspecified asthma, uncomplicated; K59.00 Constipation, unspecified; R11.2 Nausea with vomiting, unspecified; M25.561 Pain in right knee; Z96.642 Presence of left artificial hip joint; Z63.4 Disappearance and death of family member
CPT/HCPCS: 36415; 80053; 81003; 85027; 86780; 93005; 93010; C9803-CS; J0475; Q0162; U0003; U0005